=== PATIENT | male | born 1950 | race Caucasian/White ===

== ENCOUNTER 2020-05-08 10:24 | Inpatient (IN) | payer MEDICARE, OTHER, SELFPAY ==
[2020-05-08] VITALS (40 sets, daily range): BP systolic 115–165; BP diastolic 48–125; PULSE 71–91; RESP 16–31; TEMP 36.3–37.7; O2SAT 84–98; BMI 41.8
--- NOTE | ~2020-05-08 | XR_ITS ---
EXAMINATION: XR chest 2V DATE: 05/08/2020 12:21 INDICATION: Midsternal chest pain. Shortness of breath. TECHNIQUE: Frontal and lateral views of the chest were obtained. COMPARISON: Chest 2 views 08/16/2019 FINDINGS: There is mild atelectasis at left lung base. No pleural effusion or pneumothorax. The heart size is normal. There are epidural electrodes in thoracic spine. IMPRESSION: 1. Mild atelectasis at left lung base. Reviewed, dictated and finalized at location A.
--- NOTE | ~2020-05-08 | XR_ITS ---
EXAMINATION: XR cholangiogram surg 1st inj DATE: 05/12/2020 13:56 INDICATION: Cholelithiasis. TECHNIQUE: 187 fluoroscopic images of the right upper quadrant were obtained during intraoperative ch olangiography performed by the surgeon. I was not present in the operating room. Fluoroscopy exposure time was 30 seconds. COMPARISON: CT abdomen and pelvis 05/08/2020 FINDINGS: There is a catheter in the cystic duct. There is stricture of the distal 2/3 of the common duct, likely secondary to pancreatitis. Contrast passes to the duodenum. There is no choledocholithia sis. IMPRESSION: 1. No choledocholithiasis. 2. Stricture of the distal 2/3 of the common duct, likely secondary to pancreatitis. Reviewed, dictated and finalized at location A. IMPRESSION: 1. No choledocholithiasis. 2. Stricture of the distal 2/3 of the common duct, likely secondary to pancreat itis.
--- NOTE | ~2020-05-08 | CT_ITS ---
EXAMINATION: CT abdomen pelvis w con DATE: 05/08/2020 13:10 INDICATION: Epigastric abdominal pain. TECHNIQUE: Computed tomography (CT) of the abdomen and pelvis was performed with 100 mL Omnipaque 350 intravenous contrast. Automated exposure control and iterative reconstruction technique were employe d. The dose-length product was 1486.37 mGy-cm. COMPARISON: Ultrasound 05/08/2020 FINDINGS: The visualized portions of the lung bases demonstrate mild atelectasis. No pleural effusion . The heart size is normal. There are coronary artery calcifications. No pericardial effusion. There is diffuse hepatic steatosis. There are gallstones in the gallbladder, which is normal in size. The s pleen is normal. There is fat stranding around the head of the pancreas, consistent with acute inters titial pancreatitis. The adrenal glands and right kidney are normal. There is a 1.7 cm cyst in left k idney. There are no dilated loops of bowel. There is diverticulosis of the colon without evidence of diverticulitis. The appendix is normal. There are no pathologically enlarged lymph nodes. There is no free intraperitoneal fluid. There are old healed fractures of the pubic bones. There is ankylosis of the left sacroiliac joint with 2 screws. There is failed fusion of the right sacroiliac joint with f ixation with a broken screw. Epidural electrodes are noted in thoracic spine. There is mild thoracic spondylosis and moderate lumbar spondylosis. IMPRESSION: 1. Acute interstitial pancreatitis. 2. Cholelithiasis. 3. Diffuse hepatic steatosis. Reviewed, dictated and finalized at location A.
--- NOTE | ~2020-05-08 | US_ITS ---
EXAMINATION: US right upper quadrant DATE: 05/08/2020 12:18 INDICATION: Right upper quadrant abdominal pain. TECHNIQUE: Multiple grayscale and Doppler ultrasound images of the abdomen were obtained. COMPARISON: Ultrasound 08/16/2019 FINDINGS: The visualized portion of the head of the pancreas is normal. There is diffuse hepatic stea tosis. No liver surface nodularity. There is normal flow in main portal vein. The gallbladder is norm al in size. No gallstones or gallbladder wall thickening. There are polyps in the gallbladder measuri ng up to 4 mm, likely benign and needing no follow-up. There was no sonographic Scales sign. The comm on duct is normal and measures 3 mm. IMPRESSION: 1. Diffuse hepatic steatosis. Reviewed, dictated and finalized at location A.
--- NOTE | 2020-05-08 10:50 | PC.NURSE ---
Pt difficult IV stick causing delay in lab draw. Attempt x2 without success.
[2020-05-08 11:17] LABS: Basophils Percent Auto 0.2 % (0.2-1.2); Eosinophils Percent Auto 0.1 % (0-4.4); Hematocrit 37.3 % (42.0-52.0); Immature Granulocyte Absolute 0.09 K/mm3 (0.00-0.031); Immature Granulocyte Percent A 0.6 % (0-0.5); Lymphocytes Absolute Auto 1.19 K/mm3 (0.9-3.2); Lymphocytes Percent Auto 8.3 % (18.3-44.2); Mean Corpuscular HGB Conc 32.2 g/dl (32-36); Mean Corpuscular Hemoglobin 26.1 pg (26-34); Mean Corpuscular Volume 81.3 fl (80-100); Monocytes Absolute Auto 1.1 K/mm3 (0.1-0.6); Monocytes Percent Auto 7.8 % (2.6-8.5); Neutrophils Absolute Auto 11.9 K/mm3 (1.3-6.7); Platelet Count Result 179 k/mm3 (150-375); Red Blood Count 4.59 M/mm3 (4.6-6.20); Red Cell Distribution Width 15.9 % (11.5-14.5); White Blood Count 14.3 K/mm3 (4.5-10.0)
[2020-05-08 11:27] LABS: INR 1.1; Prothrombin Time 13.7 Seconds (11.1-14.7)
[2020-05-08] MEDS: SODIUM CHLORIDE 0.9% IV 1,000 ML 999 ML IV CONT (11:27)
[2020-05-08] MEDS: MORPHINE SULFATE (*CRX) 4 MG/ML INJ IV PUSH ×3 (11:27→15:39)
[2020-05-08 11:28] LABS: Partial Thromboplastin Time 30.2 SECONDS (22.3-36.8)
[2020-05-08 11:31] LABS: Alanine Aminotransferase 24 U/L (4-50); Albumin Level 4.3 g/dL (3.5-5.1); Alkaline Phosphatase 112 U/L (38-126); Anion Gap 7 mmol/L (8-16); Aspartate Amino Transferase 26 U/L (17-59); Bilirubin,Total 2.1 mg/dL (0.2-1.3); Blood Urea Nitrogen 15 mg/dL (9-20); Carbon Dioxide 29 mmol/L (22-30); Chloride 96 mmol/L (98-107); Estimated CRCL calculation 88 ml/min; Estimated Glomerular Filt Rate > 60; Glucose 127 mg/dL (75-110); Lipase 450 U/L (23-300); Sodium 132 mmol/L (137-145)
[2020-05-08 11:42] LABS: Troponin I < 0.012 ng/mL (0.000-0.034)
--- NOTE | 2020-05-08 11:54 | ECG_ITS ---
Measurements Intervals [place] Rate: 92 P: 71 NV: 140 QRS: -29 QRSD: 97 T: 13 QT: 405 QTc: 501 Interpretive Statements SINUS RHYTHM SUPRAVENTRICULAR BIGEMINY ABNORMAL ECG Electronically Signed On 05-08-2020 12:34:26 CDT by Murtaza Menchaca D.O.
--- NOTE | 2020-05-08 11:55 | PC.NURSE ---
Pt with ultrasound.
--- NOTE | 2020-05-08 12:49 | PC.NURSE ---
Pt resting on stretcher. Call light within reach.
[2020-05-08 12:57] LABS: Add Urine Microscopic? YES; Appearance Urine Cloudy (Clear); Bacteria Urine 2+ /hpf; Bilirubin Urine Negative (Negative); Blood Urine Negative (Negative); Color Urine Yellow (Yellow); Glucose Urine UA Negative (Negative); Ketones Urine Negative (Negative); Leukocyte Esterase Ur Trace LEU/UL (Negative); Mucus Urine Few /lpf; Nitrate Urine Negative (Negative); Protein Urine 1+ mg/dL (Negative); RBC Urine 0-2 /hpf (0-2); Specific Grav Ur 1.021 (1.001-1.035); WBC Urine 16-20 /hpf
--- NOTE | 2020-05-08 12:58 | PC.NURSE ---
Pt requesting pain medication. ERP made aware.
--- NOTE | 2020-05-08 13:38 | PC.NURSE ---
pt resting on stretcher. call light within reach.
--- NOTE | 2020-05-08 14:14 | ED.GENADULT ---
HPI - General Adult General Chief complaint: Chest Pain Stated complaint: Abd/cp Time Seen by Provider: 05/08/20 10:30 History of Present Illness HPI narrative: Patient is a 70-year-old male who presents ER with abdominal pain. Ongoing for 2 days radiates into his chest. Worse with movement and eating. Has some nausea but no vomiting. No history of gallstones. Has not had these symptoms before. No exertional component. No alleviating factors. Related Data Allergies Allergy/AdvReac Type Severity Reaction Status Date / Time No Known Allergies Allergy Verified 05/08/20 13:37 Review of Systems Review of Systems: All systems reviewed & are unremarkable except as noted in HPI and below Constitutional: Constitutional: Denies chills, Denies fever(s) and Denies weakness ENT: Denies nasal congestion and Denies sore throat Respiratory: Respiratory: Denies cough, Denies dyspnea and Denies wheezing Gastrointestinal: Gastrointestinal: Reports abdominal pain, Denies bloating, Denies diarrhea, Reports nausea and Denies vomiting PMFSH Past Medical History Medical History (Updated 05/08/20 @ 18:47 by Hieu Alberto MD) Anxiety Arthritis Back pain Depression Diabetes GERD (gastroesophageal reflux disease) History of drug abuse HLD (hyperlipidemia) Hypertension Migraines Pelvis fracture the patient stated that he has [address] from surgery Sleep apnea Spinal cord stimulator status Surgical History Surgical History (Updated 05/08/20 @ 16:47 by Leanne Mackey NP) History of back surgery 2-3 times History of open reduction and internal fixation (ORIF) procedure lt thumb History of tonsillectomy Social History Social History (Updated 08/16/19 @ 13:25 by Elio Mckenna) Smoking packs per day: 0.5 Smoking cigarettes per day: 10.0 Years smoked: 30 Smoking pack-years: 15.00 Smoking status: Former smoker Tobacco type: cigarettes Alcohol intake: never Substance use type: opiates and prescription drug Last use: 05/07/2020 Gender identity (if verbalized by the patient): Male Sexual Orientation (if Verbalized by the Patient): Straight or Heterosexual Spiritual care concerns: No Exam Narrative: Exam Narrative: GENERAL: Well-appearing, well-nourished, and in no acute distress. HEAD: Normocephalic, atraumatic. ENT: Mucous membranes moist. CHEST: Clear to auscultation. No respiratory distress. HEART: Regular rate and rhythm. Normal peripheral pulses. ABDOMEN: Soft, mild tenderness palpation to epigastrium right upper quadrant, nondistended. EXTREMITIES: Normal range of motion. No edema. SKIN: Warm, dry, no rash. NEURO: Alert and oriented x3. Course Course Emergency Course: Patient informed results. Does not drink alcohol. Unsure why he would have pancreatitis. He could be passing a small stone and would be in need of MRCP. Admit to hospitalist service. Vital Signs Vital signs: Vital Signs Temperature 99.8 F H 05/08/20 10:28 Pulse Rate 89 05/08/20 10:28 Respiratory Rate 19 05/08/20 10:28 Blood Pressure 157/67 H 05/08/20 10:28 Pulse Oximetry 91 05/08/20 10:28 Temperature 97.8 F 05/08/20 17:43 Pulse Rate 82 05/08/20 17:43 Respiratory Rate 20 05/08/20 17:43 Blood Pressure 157/77 H 05/08/20 17:43 Pulse Oximetry 97 05/08/20 17:43 Medical Decision Making Vital Signs Vital Signs: Vital Signs Temperature 99.8 F H 05/08/20 10:28 Pulse Rate 89 05/08/20 10:28 Respiratory Rate 19 05/08/20 10:28 Blood Pressure 157/67 H 05/08/20 10:28 Pulse Oximetry 91 05/08/20 10:28 Temperature 97.8 F 05/08/20 17:43 Pulse Rate 82 05/08/20 17:43 Respiratory Rate 20 05/08/20 17:43 Blood Pressure 157/77 H 05/08/20 17:43 Pulse Oximetry 97 05/08/20 17:43 Lab Data Result diagrams: 05/08/20 11:09 05/08/20 11:09 Labs: Lab Results 05/08/20 05/08/20 05/08/20 Range/Units 10:45 11:09 11:09 WB
--- NOTE | 2020-05-08 16:09 | PC.NURSE ---
spoke with ag cooley regarding de la cruz cath order. states is ok to wait on placement since pt stood at bedside earlier and voided in urinal without difficulty.
--- NOTE | 2020-05-08 16:36 | PM.IMHP ---
H&P: HPI History of Present Illness Date/Time: 05/08/20 16:36 Chief complaint: pancreatitis Narrative: Marcial Saldana is a 70 year old male Who has a history of severe gastroesophageal reflux disease. The patient had been here back and August with abdominal pain that he stated was this severe. At that time they told him that was just gastroesophageal reflux disease. The patient stated for the last 2 days he has just not been able to tolerate the discomfort. The patient does have chronic back pain and has a stimulator to his back. He stated that has not been helping him. He has [place] that he takes at home as well as MS Contin. The patient stated that his routine pain medication is not helping him. He is complaining of epigastric discomfort that radiates to his chest. It is worse with movement and eating. He said he had a little bit of nausea but no vomiting. He had an abdominal pelvis CT which was read as acute interstitial pancreatitis. Cholelithiasis. Diffuse hepatic steatosis. The patient stated that he has not had any prior history of any gallstones. The patient stated that he quit drinking alcohol approximately 30 years ago. He also stated that he had a drug addiction 30 years ago and no longer uses cocaine. He was to pain management for his back and received pain medication through them. Patient has been getting morphine in the emergency room and he states that this is not enough for him. He said it was not controlling his discomfort. He is having difficulty laying on the bed. He also states that he was having difficulty urinating and that was having problems getting his urine out. He has had no previous history of any BPH. He is requesting a Myles catheter because he feels that he is not emptying and has been urinating frequently. The patient has 16-20 wbc's and 2+ bacteria in his urine. Trace of leukocyte esterase. I urine culture has been sent. Patient was started on IV fluids and given IV morphine. MRCP has been ordered for the patient. patient's lipase was only noted to be 450. Date of service 05/08/2020. Review of Systems Review of Systems: All systems reviewed & are unremarkable except as noted in HPI and below Constitutional: Constitutional: Reports as per HPI and Reports no additional constitutional complaints Eyes: Eyes: Reports as per HPI and Reports no additional eye complaints ENT: Reports system reviewed and no additional complaints, except as documented and Reports Normal hearing present Cardiovascular: Cardiovascular: Reports no additional cardiovascular complaints Respiratory: Respiratory: Reports no additional respiratory complaints and Reports no additional respiratory complaints Gastrointestinal: Gastrointestinal: Reports as per HPI and Reports no additional gastrointestinal complaints Musculoskeletal: Musculoskeletal: Reports no additional musculoskeletal complaints Integumentary/Breasts: Skin/Breast: Reports system reviewed and no additional complaints, except as docu and Reports as per HPI Neurologic: Reports system reviewed and no additional complaints, except as documented, Reports as per HPI and Reports Normal hearing present Psychiatric: Psychiatric: Reports no additional psychiatric complaints and Reports as per HPI Endocrine: Endocrine: Reports no additional endocrine complaints Hematologic/Lymphatic: Hematologic/Lymphatic: Reports no additional hematologic/lymphatic complaints Allergic/Immunologic: Allergic/Immunologic: Reports no additional allergic/immunologic complaints [facility] Past Medical History Medical History (Updated 05/08/20 @ 16:53 by Leanne Mackey NP) Anxiety Arthritis Back pain Depression Diabetes GERD (gastroesophageal reflux disease) History of drug abuse HLD (hyperlipidemia) Hypertension Migraines Pelvis fracture the patient stated that he has [address] from surgery Sleep apnea Spinal cord stimulator status Surgical History Surgical History
--- NOTE | 2020-05-08 17:06 | ADMGEN ---
This patient, Marcial Saldana, was admitted to 2 Medical Room 242-. Patient/family oriented to hospital policies and general routines including ID bracelet, bed and alarms, visiting hours, pain management, procedures, bathroom and other care routines, personal items, smoking policy, room service/diet, and visiting hours. Valuables list has been completed. Information on how to activate the Rapid Response Team has been discussed. Patient/Family are encouraged to report perceived risks to care and to ask questions if they do not understand what they are told or what they should do.
[2020-05-08 17:20] LABS: Glucose Point of Care 105 (65-105)
[2020-05-08] MEDS: LACTATED RINGERS 1,000 ML 125 ML IV CONT (17:34)
[2020-05-08] MEDS: HYDROmorphone HCL INJ (*CRX) 1 MG/ML SYR IV PUSH ×3 (17:37→23:49)
[2020-05-08 19:07] LABS: Hemoglobin A1C 5.9 % (<5.7)
[2020-05-08] MEDS: PANTOPRAZOLE SODIUM IV 40 MG VIAL IV PUSH (20:43)
[2020-05-08 23:47] LABS: Glucose Point of Care 107 (65-105)
[2020-05-09] VITALS: BP 115/42; PULSE 73; RESP 20; TEMP 36.1; O2SAT 92
[2020-05-09] MEDS: ONDANSETRON INJ 4 MG/2 ML VIAL IV PUSH (02:01)
[2020-05-09] MEDS: LACTATED RINGERS 1,000 ML 125 ML IV CONT ×2 (02:01→13:43)
[2020-05-09] MEDS: HYDROmorphone HCL INJ (*CRX) 1 MG/ML SYR IV PUSH ×7 (03:55→23:34)
[2020-05-09 04:00] VITALS: BP 119/46; PULSE 80; RESP 20; TEMP 36.1; O2SAT 95
[2020-05-09] MEDS: LORazepam INJ (*CRX) 2 MG/ML VIAL 0.5 MG IV PUSH ×3 (05:04→18:01)
[2020-05-09 05:18] LABS: Basophils Percent Auto 0.2 % (0.2-1.2); Eosinophils Percent Auto 0.2 % (0-4.4); Hematocrit 34.5 % (42.0-52.0); Immature Granulocyte Absolute 0.17 K/mm3 (0.00-0.031); Immature Granulocyte Percent A 1.3 % (0-0.5); Lymphocytes Absolute Auto 1.01 K/mm3 (0.9-3.2); Lymphocytes Percent Auto 7.7 % (18.3-44.2); Mean Corpuscular HGB Conc 31.9 g/dl (32-36); Mean Corpuscular Hemoglobin 25.7 pg (26-34); Mean Corpuscular Volume 80.6 fl (80-100); Mean Platelet Volume 12.2 fl (7.4-10.4); Monocytes Absolute Auto 1.1 K/mm3 (0.1-0.6); Monocytes Percent Auto 8.4 % (2.6-8.5); Neutrophils Absolute Auto 10.9 K/mm3 (1.3-6.7); Neutrophils Percent Auto 82.2 % (45.5-73.1); Platelet Count Result 159 k/mm3 (150-375); Red Blood Count 4.28 M/mm3 (4.6-6.20); Red Cell Distribution Width 15.9 % (11.5-14.5); White Blood Count 13.2 K/mm3 (4.5-10.0)
[2020-05-09 05:34] LABS: Alanine Aminotransferase 21 U/L (4-50); Albumin Level 3.9 g/dL (3.5-5.1); Alkaline Phosphatase 97 U/L (38-126); Anion Gap 7 mmol/L (8-16); Aspartate Amino Transferase 22 U/L (17-59); Blood Urea Nitrogen 14 mg/dL (9-20); Calcium 8.7 mg/dL (8.4-10.2); Carbon Dioxide 29 mmol/L (22-30); Chloride 98 mmol/L (98-107); Cholesterol 130 mg/dL (0-200); Estimated CRCL calculation 89 ml/min; Estimated Glomerular Filt Rate > 60; Glucose 117 mg/dL (75-110); HDL Direct 43 mg/dL; Lipase 217 U/L (23-300); Magnesium 1.8 mg/dL (1.6-2.3); Potassium 4.1 mmol/L (3.4-5.0); Sodium 134 mmol/L (137-145); Triglycerides 51 mg/dL (<150)
[2020-05-09 05:44] LABS: LDL Cholesterol Direct 62 mg/dL
[2020-05-09 05:54] LABS: Glucose Point of Care 102 (65-105)
--- NOTE | 2020-05-09 06:36 | PC.NURSE ---
DR SY NOTIFIED MRCP CANCELLED DUE TO STIMULATOR
[2020-05-09 07:03] LABS: Thyroid Stimulating Hormone Reflex 0.698 uIU/mL (0.465-4.68)
[2020-05-09 08:00] VITALS: BP 121/51; PULSE 81; RESP 18; TEMP 36.6; O2SAT 93
[2020-05-09] MEDS: PANTOPRAZOLE SODIUM IV 40 MG VIAL IV PUSH ×2 (09:45→19:49)
[2020-05-09 12:00] VITALS: BP 120/50; PULSE 90; RESP 18; TEMP 36.7; O2SAT 97
[2020-05-09 13:53] LABS: Glucose Point of Care 92 (65-105)
--- NOTE | 2020-05-09 14:23 | PM.IMPN ---
Progress Note: A&P Assessment and Plan (1) Pancreatitis: Code(s): K85.90 - Acute pancreatitis without necrosis or infection, unspecified Status: Acute Assessment and Plan: patient is NPO at this time. The patient has some gallstones. awaiting MRCP and surgery consultation. Pain control lipase and amylase to monitor (2) UTI (urinary tract infection): Code(s): N39.0 - Urinary tract infection, site not specified Status: Acute Assessment and Plan: Patient was started on Rocephin and urine cultures are pending. (3) Cholelithiasis: Code(s): K80.20 - Calculus of gallbladder without cholecystitis without obstruction Status: Acute Assessment and Plan: The CT of the abdomen shows that he does have cholelithiasis. (4) Hypertension: Code(s): I10 - Essential (primary) hypertension Status: Chronic Assessment and Plan: P.r.n. hydralazine. (5) Diabetes: Code(s): E11.9 - Type 2 diabetes mellitus without complications Status: Chronic Assessment and Plan: I am not sure what medications he is on at home the patient is not sure either but would do Accu-Cheks q.6 hours. (6) HLD (hyperlipidemia): Code(s): E78.5 - Hyperlipidemia, unspecified Status: Chronic Assessment and Plan: We will check a lipid profile in the a.m. (7) Sleep apnea: Code(s): G47.30 - Sleep apnea, unspecified Status: Chronic Assessment and Plan: titrate CPAP here. (8) Anxiety: Code(s): F41.9 - Anxiety disorder, unspecified Status: Chronic Assessment and Plan: P.r.n. Ativan. (9) Back pain: Code(s): M54.9 - Dorsalgia, unspecified Status: Chronic Assessment and Plan: Patient has a spinal stimulator. And sees pain management outside facility. (10) Depression: Code(s): F32.9 - Major depressive disorder, single episode, unspecified Status: Chronic Assessment and Plan: Patient is not sure which medications he is on at this time. Subjective Date/time seen: 05/09/20 14:23 Interval history: 70 year old male Who has a history of severe gastroesophageal reflux disease. The patient had been here back and August with abdominal pain that he stated was this severe. Admitted with pancreatitis and GB stones. Pt still having severe pain in RUQ area, awaiting MRCP and GI consultation. Review of Systems Review of Systems: All systems reviewed & are unremarkable except as noted in HPI and below Gastrointestinal: Gastrointestinal: Reports abdominal pain Comments: RUQ Exam Narrative: Exam Narrative: Pt still feels some abdominal pains Resp: Effort & Inspection: normal respiratory effort Auscultation: clear to auscultation bilaterally Percussion: percussion normal Cardio: Palpation: normal PMI Rate: regular rate Rhythm: regular rhythm Heart sounds: S1 normal heart sound present and S2 normal heart sound present Peripheral pulses: Peripheral pulses 2+ throughout GI: Inspection: normal to inspection, distended and obesity Auscultation: normal bowel sounds Neuro: General: oriented to person, oriented to place, oriented to time and patient oriented x3 Cranial nerves: Yes Equal, round and reactive pupils present and Yes Normal hearing present Cognition (Neuro): normal cognition Speech: normal speech Gait exam (Neuro): Normal gait present Motor exam (neuro): 5/5 motor strength present throughout Sensory Exam: normal sensation Extrem: General: normal to inspection Right upper extremity: normal to inspection and shoulder/upper arm Left upper extremity: normal to inspection and shoulder/upper arm Right lower extremity: normal to inspection Left lower extremity: normal to inspection Psych: Appearance: grossly normal Mental Status: mental status grossly normal Speech and movement: Normal speech and movement present Affect: normal affect Attitude: cooperative Thou
[2020-05-09 15:20] LABS: Amylase 67 U/L (30-110); Lipase 332 U/L (23-300)
[2020-05-09 16:00] VITALS: BP 118/40; PULSE 96; RESP 18; TEMP 36.8; O2SAT 94
--- NOTE | 2020-05-09 16:44 | PM.CNGS ---
Assessment and Plan Assessment and plan (1) Acute pancreatitis: Onset Date: ~05/08/20 Code(s): K85.90 - Acute pancreatitis without necrosis or infection, unspecified Status: Acute Assessment and Plan: patient is still having pain but lipase is coming down nicely in bilirubin is down to 2.0. Recommend repeating liver function tests tomorrow along with the lipase. Hopefully patient will have approval to go ahead with MRCP. He states that the generator in his nerve stimulator in his back is MRI compatible. Await MR P MRCP results. If no stones in the common duct consider laparoscopic cholecystectomy with possible intraoperative cholangiogram sometime in the next few days. (2) Cholelithiasis: Code(s): K80.20 - Calculus of gallbladder without cholecystitis without obstruction Status: Acute Assessment and Plan: I carefully reviewed the two previous ultrasounds and his recent CT scan with Dr. Corbett in radiology today. The CT suggests that there are stones in the gallbladder since these are dense and therefore most likely calcified. They also seem to separate from the wall of the gallbladder unlike the ultrasound a month ago which seemed to indicate that these possibly were polyps. If patient unable to have his MRCP may consider proceeding to laparoscopic cholecystectomy with intraoperative cholangiogram to clear the duct tomorrow, if his lipase comes down rather than goes up. For now we would consider keeping him NPO with IV fluids until we get tomorrow morning's labs back. (3) UTI (urinary tract infection): Code(s): N39.0 - Urinary tract infection, site not specified Status: Acute Assessment and Plan: Continue antibiotics (4) Hypertension: Onset Date: Unknown Code(s): I10 - Essential (primary) hypertension Status: Chronic Assessment and Plan: IV medication as needed (5) Diabetes: Onset Date: Unknown Code(s): E11.9 - Type 2 diabetes mellitus without complications Status: Chronic Assessment and Plan: monitor labs and fingersticks (6) Sleep apnea: Onset Date: Unknown Code(s): G47.30 - Sleep apnea, unspecified Status: Chronic Assessment and Plan: to use CPAP at night if needed (7) Anxiety: Onset Date: Unknown Code(s): F41.9 - Anxiety disorder, unspecified Status: Chronic Assessment and Plan: medicine has ordered some p.r.n. Ativan for this. History of Present Illness Consult details Consult date: 05/09/20 Reason for consult: abdominal pain Requesting physician: Kristal Ivan MD Narrative: Marcial Saldana is a 70 year old white male who has a history of severe gastroesophageal reflux disease. Was recently hospitalized here at [place] about a month ago. At that time his Prilosec was doubled such these taking it twice a day but he says his upper abdominal pain is never really improved a lot. The patient had also been here back in August with abdominal pain that he stated was this severe. At that time they told him that was just gastroesophageal reflux disease. The patient stated for the last 2-4 days he has just not been able to tolerate the discomfort. He tells me that it really started to care cup on Tuesday of this week. Does not remember eating any heavy spicy or fatty meals at the onset of the current pain. He states he typically tries to avoid fatty foods. The patient does have chronic back pain and has a stimulator in his back. States that this fairly recently at [facility] in [place] was replaced with an MRI compatible generator. He stated that it has not been helping him as much as he would like. He has [place] that he takes at home as well as MS Contin. The patient stated that his routine pain medication is not helping him. He is complaining of epigastric discomfort that radiates to his chest. It is worse with movement and eating.
[2020-05-09 19:06] LABS: Glucose Point of Care 99 (65-105)
[2020-05-09 21:18] VITALS: BP 135/71; PULSE 74; RESP 16; TEMP 37.3; O2SAT 97
[2020-05-09] MEDS: LACTATED RINGERS 1,000 ML 75 ML IV CONT (23:34)
[2020-05-09 23:54] LABS: Glucose Point of Care 108 (65-105)
[2020-05-10] VITALS (7 sets, daily range): BP systolic 110–140; BP diastolic 50–93; PULSE 61–79; RESP 16–20; TEMP 36.3–37.1; O2SAT 93–98
[2020-05-10] MEDS: HYDROmorphone HCL INJ (*CRX) 1 MG/ML SYR IV PUSH ×8 (01:42→18:46)
[2020-05-10 05:13] LABS: Basophils Percent Auto 0.4 % (0.2-1.2); Eosinophils Absolute Auto 0.1 K/mm3 (0-0.3); Eosinophils Percent Auto 1.1 % (0-4.4); Hematocrit 35.1 % (42.0-52.0); Hemoglobin 11.1 g/dL (14.0-18.0); Immature Granulocyte Absolute 0.09 K/mm3 (0.00-0.031); Immature Granulocyte Percent A 0.8 % (0-0.5); Lymphocytes Absolute Auto 1.01 K/mm3 (0.9-3.2); Lymphocytes Percent Auto 8.9 % (18.3-44.2); Mean Corpuscular HGB Conc 31.6 g/dl (32-36); Mean Corpuscular Hemoglobin 25.6 pg (26-34); Mean Corpuscular Volume 81.1 fl (80-100); Mean Platelet Volume 12.1 fl (7.4-10.4); Monocytes Absolute Auto 0.8 K/mm3 (0.1-0.6); Monocytes Percent Auto 7.3 % (2.6-8.5); Neutrophils Absolute Auto 9.2 K/mm3 (1.3-6.7); Neutrophils Percent Auto 81.5 % (45.5-73.1); Platelet Count Result 170 k/mm3 (150-375); Red Blood Count 4.33 M/mm3 (4.6-6.20); Red Cell Distribution Width 15.6 % (11.5-14.5); White Blood Count 11.3 K/mm3 (4.5-10.0)
[2020-05-10 05:24] LABS: Alanine Aminotransferase 19 U/L (4-50); Albumin Level 3.8 g/dL (3.5-5.1); Alkaline Phosphatase 101 U/L (38-126); Anion Gap 10 mmol/L (8-16); Aspartate Amino Transferase 23 U/L (17-59); Bilirubin,Total 1.3 mg/dL (0.2-1.3); Blood Urea Nitrogen 16 mg/dL (9-20); Calcium 8.7 mg/dL (8.4-10.2); Carbon Dioxide 27 mmol/L (22-30); Chloride 99 mmol/L (98-107); Estimated CRCL calculation 99 ml/min; Estimated Glomerular Filt Rate > 60; Glucose 101 mg/dL (75-110); Potassium 3.9 mmol/L (3.4-5.0); Sodium 136 mmol/L (137-145)
[2020-05-10 06:04] LABS: Glucose Point of Care 97 (65-105)
--- NOTE | 2020-05-10 08:25 | PM.PNGS ---
Progress Note: A&P Assessment and Plan (1) Acute pancreatitis: Onset Date: ~05/08/20 Code(s): K85.90 - Acute pancreatitis without necrosis or infection, unspecified Status: Acute Assessment and Plan: Amylae and lipase not back yet today. Information regarding patient's buried subcutaneous spinal block generator was not available last night so MRCP was not done. The nurses have contacted [facility] and are trying to get information for our magnetic residence resonance unit. Hopefully MRCP today. If amylase and lipase normal and no signs of common bile duct stone could consider laparoscopic cholecystectomy in the next 1-2 days if patient agrees. I provided the patient with some patient information regarding gallbladder surgery and diet. (2) UTI (urinary tract infection): Code(s): N39.0 - Urinary tract infection, site not specified Status: Acute (3) Cholelithiasis: Onset Date: Unknown Code(s): K80.20 - Calculus of gallbladder without cholecystitis without obstruction Status: Acute Assessment and Plan: If amylase and lipase normal eyes and no signs of common bile duct stone could consider laparoscopic cholecystectomy in the next 1-2 days if patient agrees. I provided the patient with some patient information regarding gallbladder surgery and diet. (4) Hypertension: Onset Date: Unknown Code(s): I10 - Essential (primary) hypertension Status: Chronic (5) Sleep apnea: Onset Date: Unknown Code(s): G47.30 - Sleep apnea, unspecified Status: Chronic Assessment and Plan: I did see a CPAP machine in the patient's room this morning. (6) Anxiety: Onset Date: Unknown Code(s): F41.9 - Anxiety disorder, unspecified Status: Chronic Additional Plan Encouraging nurses to work out the questions about the patient's spinal pain generator so that MRCP can take place. Okay with me to allow patient clear liquids later today if MRCP done or can't be done. Will order MiraLax b.i.d. since patient has not had bowel movement since entering the hospital. Subjective Subjective Date/Time Seen: 05/10/20 08:25 Patient laying on his right side when I entered the room. States that his pain is about the same. He is able tolerated if he keeps getting his pain medicine. Points to mid epigastric area slightly above the umbilicus for the site of most pain. States he is passing flatus but no bowel movement since entering the hospital. Review of Systems Constitutional: Constitutional: Reports no additional constitutional complaints ENT: Reports other (Mucous Membranes moist.) Cardiovascular: Cardiovascular: Denies dyspnea Respiratory: Respiratory: Denies pain on inspiration and Denies dyspnea Musculoskeletal: Musculoskeletal: Reports other (No calf swelling or edema) Integumentary/Breasts: Skin/Breast: Reports system reviewed and no additional complaints, except as docu Exam Const: General: cooperative, no acute distress, alert and awake Orientation/consciousness: patient oriented x3 HENMT: Mouth: Yes moist mucous membranes Neck: Neck: normal visual inspection Chest: Chest palpation & inspection: normal inspection of the chest Resp: Effort & Inspection: normal respiratory effort Auscultation: clear to auscultation bilaterally Cardio: Jugular venous distension: no JVD Rate: regular rate Rhythm: regular rhythm GI: Inspection: distended, Pannus present and obesity GI Palp: Yes abdominal tenderness ( Mid epigastric area) Auscultation: normal bowel sounds Rectal Exam: deferred Neuro: General: patient oriented x3 and moves all extremities Speech: normal speech Extrem: General: normal exam except as noted Psych: Mental Status: mental status grossly normal Speech and movement: Normal speech and movement present Affect: normal affect Thought content: Yes Normal thought content present Objective Data Vital Signs
[2020-05-10] MEDS: PANTOPRAZOLE SODIUM IV 40 MG VIAL IV PUSH ×2 (08:51→20:46)
--- NOTE | 2020-05-10 10:51 | PM.IMPN ---
Progress Note: A&P Assessment and Plan (1) Pancreatitis: Code(s): K85.90 - Acute pancreatitis without necrosis or infection, unspecified Status: Acute Assessment and Plan: Patient is NPO at this time. The patient has some gallstones. awaiting MRCP. Seen by surgery yesterday. Continue pain control lipase and amylase to monitor. Delay with MRCP pt has neurostimulator in situ sending details. (2) UTI (urinary tract infection): Code(s): N39.0 - Urinary tract infection, site not specified Status: Acute Assessment and Plan: Patient was started on Rocephin and urine cultures shows Klebsiella sensitive to rocephin (3) Cholelithiasis: Onset Date: Unknown Code(s): K80.20 - Calculus of gallbladder without cholecystitis without obstruction Status: Acute Assessment and Plan: The CT of the abdomen shows that he does have cholelithiasis. Pt awaiting MRCP today. (4) Hypertension: Onset Date: Unknown Code(s): I10 - Essential (primary) hypertension Status: Chronic Assessment and Plan: P.r.n. hydralazine. (5) Diabetes: Onset Date: Unknown Code(s): E11.9 - Type 2 diabetes mellitus without complications Status: Chronic Assessment and Plan: Accu-Cheks q.6 hours. (6) HLD (hyperlipidemia): Code(s): E78.5 - Hyperlipidemia, unspecified Status: Chronic Assessment and Plan: We will check a lipid profile in the a.m. (7) Sleep apnea: Onset Date: Unknown Code(s): G47.30 - Sleep apnea, unspecified Status: Chronic Assessment and Plan: titrate CPAP here. (8) Anxiety: Onset Date: Unknown Code(s): F41.9 - Anxiety disorder, unspecified Status: Chronic Assessment and Plan: P.r.n. Ativan. (9) Back pain: Code(s): M54.9 - Dorsalgia, unspecified Status: Chronic Assessment and Plan: Patient has a spinal stimulator. And sees pain management outside facility. (10) Depression: Code(s): F32.9 - Major depressive disorder, single episode, unspecified Status: Chronic Assessment and Plan: Ensure of the medications awaiting details from Subjective Date/time seen: 05/10/20 10:51 Interval history: 70 year old male Who has a history of severe gastroesophageal reflux disease. The patient had been here back and August with abdominal pain that he stated was this severe. Admitted with pancreatitis and GB stones. Pt still having severe pain in RUQ area, awaiting MRCP, hopefully today. Pt seen by surgery yesterday. Pt has neurostimulator in situ sending details to us. Review of Systems Review of Systems: All systems reviewed & are unremarkable except as noted in HPI and below Gastrointestinal: Gastrointestinal: Reports abdominal pain Exam Narrative: Exam Narrative: Pt still feels some abdominal pains Const: Orientation/consciousness: oriented to person, oriented to place, oriented to time and patient oriented x3 Eyes: Pupils: Equal, round and reactive pupils present Resp: Effort & Inspection: normal respiratory effort Auscultation: clear to auscultation bilaterally Percussion: percussion normal Cardio: Palpation: normal PMI Rate: regular rate Rhythm: regular rhythm Heart sounds: S1 normal heart sound present and S2 normal heart sound present Peripheral pulses: Peripheral pulses 2+ throughout GI: Inspection: normal to inspection Auscultation: normal bowel sounds Other: RUQ tenderness Neuro: General: oriented to person, oriented to place, oriented to time and patient oriented x3 Cranial nerves: Yes Equal, round and reactive pupils present and Yes Normal hearing present Cognition (Neuro): normal cognition Speech: normal speech Gait exam (Neuro): Normal gait present Motor exam (neuro): 5/5 motor strength present throughout Sensory Exam: normal sensation Extrem: General: normal to inspection Right
[2020-05-10 12:03] LABS: Glucose Point of Care 86 (65-105)
[2020-05-10] MEDS: LACTATED RINGERS 1,000 ML 75 ML IV CONT (14:08)
[2020-05-10 15:00] LABS: Amylase 68 U/L (30-110); Lipase 353 U/L (23-300)
[2020-05-10] MEDS: GLUCOSE ORAL GEL 15 GM OF GLUCSE IN 37.5 GM TUBE PO (16:14)
--- NOTE | 2020-05-10 16:18 | ECG_ITS ---
Measurements Intervals [place] Rate: 85 P: 37 IA: 136 QRS: -23 QRSD: 127 T: 14 QT: 389 QTc: 463 Interpretive Statements SINUS RHYTHM SUPRAVENTRICULAR BIGEMINY RSR' IN V1 OR V2, CONSIDER RIGHT VENTRICULAR HYPERTROPHY OR RIGHT VCD BORDERLINE ST ABNORMALITY- ANTEROLATERAL LEADS BASELINE WANDER- V1-V6 BASELINE ARTIFACT- II, III, AVF, V1-V6 ABNORMAL ECG Electronically Signed On 05-10-2020 17:08:20 CDT by Murtaza Menchaca D.O.
[2020-05-10 16:43] LABS: Glucose Point of Care 97 (65-105)
[2020-05-10 16:43] LABS: Glucose Point of Care 69 (65-105)
[2020-05-10 17:17] LABS: Troponin I < 0.012 ng/mL (0.000-0.034)
[2020-05-10] MEDS: LORazepam INJ (*CRX) 2 MG/ML VIAL 0.5 MG IV PUSH (18:47)
[2020-05-10] MEDS: HYDROcodone/acetaminophen (*CRX) 5-325 MG TABLET 1 TAB PO (20:45)
[2020-05-10 21:55] LABS: Glucose Point of Care 87 (65-105)
[2020-05-10] MEDS: PREGABALIN (*CRX) 75 MG CAPSULE 225 MG PO (23:36)
[2020-05-11] MEDS: LORazepam INJ (*CRX) 2 MG/ML VIAL 0.5 MG IV PUSH ×2 (00:57→23:00)
[2020-05-11 02:05] VITALS: BP 127/73; PULSE 72; RESP 16; TEMP 36.4; O2SAT 97
[2020-05-11] MEDS: LACTATED RINGERS 1,000 ML 75 ML IV CONT ×2 (04:49→21:05)
[2020-05-11 06:02] LABS: Hematocrit 34.4 % (42.0-52.0); Hemoglobin 11.2 g/dL (14.0-18.0); Mean Corpuscular HGB Conc 32.6 g/dl (32-36); Mean Corpuscular Hemoglobin 25.8 pg (26-34); Mean Corpuscular Volume 79.3 fl (80-100); Mean Platelet Volume 11.9 fl (7.4-10.4); Platelet Count Result 206 k/mm3 (150-375); Red Blood Count 4.34 M/mm3 (4.6-6.20); Red Cell Distribution Width 15.3 % (11.5-14.5); White Blood Count 9.3 K/mm3 (4.5-10.0)
[2020-05-11 06:11] LABS: Alanine Aminotransferase 27 U/L (4-50); Albumin Level 3.8 g/dL (3.5-5.1); Alkaline Phosphatase 137 U/L (38-126); Anion Gap 8 mmol/L (8-16); Aspartate Amino Transferase 31 U/L (17-59); Bilirubin,Total 1.4 mg/dL (0.2-1.3); Blood Urea Nitrogen 15 mg/dL (9-20); Calcium 9.1 mg/dL (8.4-10.2); Carbon Dioxide 26 mmol/L (22-30); Chloride 99 mmol/L (98-107); Estimated CRCL calculation 99 ml/min; Estimated Glomerular Filt Rate > 60; Glucose 115 mg/dL (75-110); Lipase 315 U/L (23-300); Magnesium 2.2 mg/dL (1.6-2.3); Potassium 3.8 mmol/L (3.4-5.0); Sodium 133 mmol/L (137-145)
[2020-05-11 06:44] VITALS: BP 134/71; PULSE 72; RESP 16; TEMP 36.4; O2SAT 96
[2020-05-11 08:05] LABS: Glucose Point of Care 111 (65-105)
[2020-05-11] MEDS: PANTOPRAZOLE SODIUM IV 40 MG VIAL IV PUSH ×3 (10:00→20:57)
[2020-05-11] MEDS: PREGABALIN (*CRX) 75 MG CAPSULE 225 MG PO ×2 (10:01→20:58)
[2020-05-11 10:10] VITALS: BP 141/52; PULSE 83; RESP 18; TEMP 36.6; O2SAT 98
[2020-05-11 12:01] LABS: Glucose Point of Care 99 (65-105)
--- NOTE | 2020-05-11 12:57 | WPDANESEPP ---
Anes - Eval Pre Procedure Procedure: Laparoscopic Cholecystectomy with IOC's Date/Time: 05/11/20 12:57 Surgeon: Brendan Pre Op Diagnosis: pancreatitis Patient Data Age: 70 Gender: M Height: 1.73 m Weight: 125 kg Last Vital Signs Temp 36.6 C 05/11/20 10:10 Pulse 83 05/11/20 10:10 Resp 18 05/11/20 10:10 BP 141/52 H 05/11/20 10:10 Pulse Ox 98 05/11/20 10:10 Allergies Allergy/AdvReac Type Severity Reaction Status Date / Time No Known Allergies Allergy Verified 05/08/20 13:37 Home Medications Medication Instructions Recorded Confirmed Type omeprazole magnesium [Prilosec OTC] 20 mg PO BID #30 tablet 08/16/19 05/08/20 Rx aripiprazole 2.5 mg PO DAILY 05/08/20 05/08/20 History aspirin [Adult Low Dose Aspirin] 81 mg PO DAILY 05/08/20 05/08/20 History atorvastatin 40 mg PO HS 05/08/20 05/08/20 History budesonide-formoterol [Symbicort] 2 puff INHALATION Q12H 05/08/20 05/08/20 History bupropion HCl 300 mg PO QAM 05/08/20 05/08/20 History cholecalciferol (vitamin D3) 50 mcg PO DAILY 05/08/20 05/08/20 History [Vitamin D3] hydrocodone-acetaminophen 1 tablet PO Q6H PRN 05/08/20 05/08/20 History ipratropium-albuterol 3 ml INHALATION QID PRN 05/08/20 05/08/20 History lisinopril 10 mg PO DAILY 05/08/20 05/08/20 History metformin 500 mg PO BID 05/08/20 05/08/20 History morphine 15 mg PO Q12H 05/08/20 05/08/20 History pregabalin [Lyrica] 225 mg PO BID 05/08/20 05/08/20 History tiotropium bromide [Spiriva 2 puff INHALATION DAILY 05/08/20 05/08/20 History Respimat] Laboratory Tests 05/10/20 05/10/20 05/10/20 14:36 14:36 16:09 WBC RBC Hgb Hct MCV MCH MCHC RDW Plt Count MPV Sodium Potassium Chloride Carbon Dioxide Anion Gap BUN Creatinine Estim Creat Clear Calc Estimated GFR Glucose POC Capillary Glucose 69 mg/dl mg/dl (65-105) Calcium Magnesium Total Bilirubin AST ALT Alkaline Phosphatase Troponin I Total Protein Albumin Amylase 68 U/L U/L (30-110) Lipase 353 U/L H U/L (23-300) 05/10/20 05/10/20 05/10/20 16:33 16:47 20:53 WBC RBC Hgb Hct MCV MCH MCHC RDW Plt Count MPV Sodium Potassium Chloride Carbon Dioxide Anion Gap BUN Creatinine Estim Creat Clear Calc Estimated GFR Glucose POC Capillary Glucose 97 mg/dl mg/dl 87 mg/dl mg/dl (65-105) (65-105) Calcium Magnesium Total Bilirubin AST ALT Alkaline Phosphatase Troponin I < 0.012 ng/mL ng/mL (0.000-0.034) Total Protein Albumin Amylase Lipase 05/11/20 05/11/20 05/11/20 05:16 05:16 07:55 WBC 9.3 K/mm3 K/mm3 (4.5-10.0) RBC 4.34 M/mm3 L M/mm3 (4.6-6.20) Hgb 11.2 g/dL L g/dL (14.0-18.0) Hct 34.4 % L % (42.0-52.0) MCV 79.3 fl L fl (80-100) MCH 25.8 pg L pg (26-34) MCHC 32.6 g/dl g/dl (32-36) RDW 15.3 % H % (11.5-14.5) Plt Count 206 k/mm3 k/mm3 (150-375) MPV 11.9 fl H fl (7.4-10.4) Sodium 133 mmol/L L mmol/L (137-145) Potassium 3.8 mmol/L mmol/L (3.4-5.0) Chloride 99 mmol/L mmol/L (98-107) Carbon Dioxide 26 mmol/L mmol/L (22-30) Anion Gap 8 mmol/L mmol/L (8-16) BUN 15 mg/dL mg/dL (9
[2020-05-11] MEDS: HYDROcodone/acetaminophen (*CRX) 5-325 MG TABLET 1 TAB PO ×2 (13:35→20:57)
--- NOTE | 2020-05-11 13:47 | PM.IMPN ---
Progress Note: A&P Assessment and Plan (1) Pancreatitis: Code(s): K85.90 - Acute pancreatitis without necrosis or infection, unspecified Status: Acute Assessment and Plan: Patient is NPO at this time. The patient has some gallstones. Pt for lap brenda soco AM under Surgery team. informed. (2) UTI (urinary tract infection): Code(s): N39.0 - Urinary tract infection, site not specified Status: Acute Assessment and Plan: Patient was started on Rocephin and urine cultures shows Klebsiella sensitive to rocephin (3) Cholelithiasis: Onset Date: Unknown Code(s): K80.20 - Calculus of gallbladder without cholecystitis without obstruction Status: Acute Assessment and Plan: The CT of the abdomen shows that he does have cholelithiasis. (4) Hypertension: Onset Date: Unknown Code(s): I10 - Essential (primary) hypertension Status: Chronic Assessment and Plan: P.r.n. hydralazine. (5) Diabetes: Onset Date: Unknown Code(s): E11.9 - Type 2 diabetes mellitus without complications Status: Chronic Assessment and Plan: Accu-Cheks q.6 hours. (6) HLD (hyperlipidemia): Code(s): E78.5 - Hyperlipidemia, unspecified Status: Chronic Assessment and Plan: We will check a lipid profile in the a.m. (7) Sleep apnea: Onset Date: Unknown Code(s): G47.30 - Sleep apnea, unspecified Status: Chronic Assessment and Plan: titrate CPAP here. (8) Anxiety: Onset Date: Unknown Code(s): F41.9 - Anxiety disorder, unspecified Status: Chronic Assessment and Plan: P.r.n. Ativan. (9) Back pain: Code(s): M54.9 - Dorsalgia, unspecified Status: Chronic Assessment and Plan: Patient has a spinal stimulator. And sees pain management outside facility. Stimulator is off checked by [facility] [employer] on Tuesday. Will need new battery inserted. (10) Depression: Code(s): F32.9 - Major depressive disorder, single episode, unspecified Status: Chronic Assessment and Plan: Medication list updated. Subjective Date/time seen: 05/11/20 13:47 Interval history: 70 year old male who has a history of severe gastroesophageal reflux disease. The patient had been here back in August with abdominal pain that he stated was this severe. Admitted with pancreatitis and GB stones this admission. Pt still having severe pain in RUQ area. Pt seen by surgery. Pt has neurostimulator in situ so was unable to have his MRCP. Pt is going for lap brenda, tomorrow. Review of Systems Review of Systems: All systems reviewed & are unremarkable except as noted in HPI and below Gastrointestinal: Comments: Abdominal pains RUQ Exam Narrative: Exam Narrative: Pt still feels some abdominal pains Const: Orientation/consciousness: oriented to person, oriented to place, oriented to time and patient oriented x3 Eyes: Pupils: Equal, round and reactive pupils present Resp: Effort & Inspection: normal respiratory effort Auscultation: clear to auscultation bilaterally Percussion: percussion normal Cardio: Palpation: normal PMI Rate: regular rate Rhythm: regular rhythm Heart sounds: S1 normal heart sound present and S2 normal heart sound present Peripheral pulses: Peripheral pulses 2+ throughout GI: Inspection: normal to inspection Auscultation: normal bowel sounds Other: RUQ tenderness Neuro: General: oriented to person, oriented to place, oriented to time and patient oriented x3 Cranial nerves: Yes Equal, round and reactive pupils present and Yes Normal hearing present Cognition (Neuro): normal cognition Speech: normal speech Gait exam (Neuro): Normal gait present Motor exam (neuro): 5/5 motor strength present throughout Sensory Exam: normal sensation Extrem: General: normal to inspection Right upper extremity: normal to inspection and shoulder/upper arm Left upper ext
--- NOTE | 2020-05-11 13:58 | PM.PNGS ---
Progress Note: A&P Assessment and Plan (1) Acute pancreatitis: Onset Date: ~05/08/20 Code(s): K85.90 - Acute pancreatitis without necrosis or infection, unspecified Status: Acute Assessment and Plan: lipase down to 315 today so close to upper limits of normal. Information From our MR department regarding patient's buried subcutaneous spinal block generator was that they do not do any MRs on patients that have these. Only [facility] does these so patient will not be able to have the MRCP here. Because of this I had a thorough discussion with the patient today and we would like to proceed with the other option which would be a c laparoscopic cholecystectomy in the next 1-2 days and if a cholangiogram shows a stone the patient could proceed to ERCP. If no stone he would be able to go home probably the following day. The risks, benefits, possible complications of this including bleeding, infection, possible injury to surrounding organs possible need for open cholecystectomy have been described to the patient he seems understand wished to proceed. I provided the patient with some patient information regarding gallbladder surgery and diet. Surgery is tentatively been scheduled for Tuesday05/12/2020 (2) UTI (urinary tract infection): Code(s): N39.0 - Urinary tract infection, site not specified Status: Acute (3) Cholelithiasis: Onset Date: Unknown Code(s): K80.20 - Calculus of gallbladder without cholecystitis without obstruction Status: Acute Assessment and Plan: If lipase normalizes and no signs of common bile duct stone, could consider laparoscopic cholecystectomy in the next 1-2 days if patient agrees. I provided the patient with some patient information regarding gallbladder surgery and diet. (4) Hypertension: Onset Date: Unknown Code(s): I10 - Essential (primary) hypertension Status: Chronic (5) Sleep apnea: Onset Date: Unknown Code(s): G47.30 - Sleep apnea, unspecified Status: Chronic Assessment and Plan: I did see a CPAP machine in the patient's room this morning. (6) Anxiety: Onset Date: Unknown Code(s): F41.9 - Anxiety disorder, unspecified Status: Chronic Additional Plan I will order two grams of Ancef even though he is on ceftriaxone for his urinary tract infection. He gets that in the evening so it would be better to have a good dose of antibiotics in his system when we do the surgery. Patient wishes to proceed tomorrow. Will order MiraLax b.i.d. since patient has not had bowel movement since entering the hospital. Subjective Subjective Date/Time Seen: 05/11/20 13:58 Patient lying bed when I entered the room. Still having some mid abdominal pain. Did have a bowel movement yesterday. States he is passing some flatus. He knows we are not able to proceed to the MRCP. This is because of the metal in his spinal generator for pain control. He is interested in proceeding to laparoscopic cholecystectomy with cholangiogram to see if there is a stone in the common duct or to clear the common duct. We will plan for this for tomorrow. Review of Systems Constitutional: Constitutional: Reports as per HPI, Reports no additional constitutional complaints and Denies headache(s) Eyes: Eyes: Denies loss of vision and Denies eye pain ENT: Reports Normal hearing present, Denies change in voice, Denies dizziness, Denies headache(s) and Reports other (Mucous Membranes moist.) Cardiovascular: Cardiovascular: Denies chest pain and Denies dyspnea Respiratory: Respiratory: Denies pain on inspiration, Denies dyspnea and Denies wheezing Gastrointestinal: Gastrointestinal: Reports abdominal pain ( Mid abdomen) Musculoskeletal: Musculoskeletal: Denies back pain, Denies arthralgias and Reports other (No calf swelling or edema) Integumentary/Breasts: Skin/Breast: Reports system reviewed and no additi
[2020-05-11 14:00] VITALS: BP 111/77; PULSE 80; RESP 18; TEMP 36.8; O2SAT 97
[2020-05-11 17:00] LABS: Glucose Point of Care 103 (65-105)
[2020-05-11] MEDS: ONDANSETRON INJ 4 MG/2 ML VIAL IV PUSH ×2 (17:40→22:56)
[2020-05-11 18:00] VITALS: BP 122/70; PULSE 96; RESP 16; TEMP 36.9; O2SAT 96
[2020-05-11 21:48] VITALS: BP 135/72; PULSE 81; RESP 18; TEMP 36.9; O2SAT 96
[2020-05-11 21:52] LABS: Glucose Point of Care 110 (65-105)
[2020-05-12] VITALS (14 sets, daily range): BP systolic 113–142; BP diastolic 59–89; PULSE 48–113; RESP 14–22; TEMP 35.9–36.7; O2SAT 93–100
[2020-05-12] MEDS: HYDROcodone/acetaminophen (*CRX) 5-325 MG TABLET 1 TAB PO ×2 (03:52→17:46)
[2020-05-12] MEDS: CHLORHEXIDINE GLUCONATE 4% SOL 120 ML BTL 1 APPLIC TOPICAL (05:33)
[2020-05-12 06:08] LABS: Basophils Percent Auto 0.6 % (0.2-1.2); Eosinophils Absolute Auto 0.2 K/mm3 (0-0.3); Eosinophils Percent Auto 2.3 % (0-4.4); Hematocrit 32.8 % (42.0-52.0); Hemoglobin 10.4 g/dL (14.0-18.0); Immature Granulocyte Absolute 0.06 K/mm3 (0.00-0.031); Immature Granulocyte Percent A 0.9 % (0-0.5); Lymphocytes Absolute Auto 1.11 K/mm3 (0.9-3.2); Lymphocytes Percent Auto 15.9 % (18.3-44.2); Mean Corpuscular HGB Conc 31.7 g/dl (32-36); Mean Corpuscular Hemoglobin 25.2 pg (26-34); Mean Corpuscular Volume 79.6 fl (80-100); Mean Platelet Volume 11.6 fl (7.4-10.4); Monocytes Absolute Auto 0.6 K/mm3 (0.1-0.6); Monocytes Percent Auto 8.6 % (2.6-8.5); Neutrophils Percent Auto 71.7 % (45.5-73.1); Platelet Count Result 210 k/mm3 (150-375); Red Blood Count 4.12 M/mm3 (4.6-6.20); Red Cell Distribution Width 15.5 % (11.5-14.5)
[2020-05-12 06:25] LABS: Alanine Aminotransferase 52 U/L (4-50); Albumin Level 3.4 g/dL (3.5-5.1); Alkaline Phosphatase 132 U/L (38-126); Anion Gap 7 mmol/L (8-16); Aspartate Amino Transferase 41 U/L (17-59); Blood Urea Nitrogen 13 mg/dL (9-20); Calcium 8.6 mg/dL (8.4-10.2); Carbon Dioxide 28 mmol/L (22-30); Chloride 102 mmol/L (98-107); Estimated CRCL calculation 99 ml/min; Estimated Glomerular Filt Rate > 60; Glucose 119 mg/dL (75-110); Lipase 213 U/L (23-300); Potassium 3.7 mmol/L (3.4-5.0); Sodium 137 mmol/L (137-145)
[2020-05-12 07:49] LABS: Glucose Point of Care 102 (65-105)
[2020-05-12] MEDS: PREGABALIN (*CRX) 75 MG CAPSULE 225 MG PO ×2 (10:10→20:49)
--- NOTE | 2020-05-12 10:38 | PM.IMPN ---
Progress Note: A&P Assessment and Plan (1) Pancreatitis: Qualifiers: Chronicity: acute Pancreatitis type: unspecified pancreatitis type Acute pancreatitis complication: unspecified Qualified Code(s): K85.90 - Acute pancreatitis without necrosis or infection, unspecified Code(s): K85.90 - Acute pancreatitis without necrosis or infection, unspecified Status: Acute Assessment and Plan: Patient presents with ongoing issues of intermittent abdominal discomfort; evidence of acute pancreatitis on imaging. Lipase up to 450 on arrival, now resolved to 213 today. Bili was elevated but normal today. Gallstones were noted. General surgery following - appreciate recommendations. He is scheduled for laparoscopic cholecystectomy this afternoon with Dr Cardona. Continue supportive care with analgesics and antiemetics as needed. (2) UTI (urinary tract infection): Qualifiers: Urinary tract infection type: acute cystitis Hematuria presence: without hematuria Qualified Code(s): N30.00 - Acute cystitis without hematuria Code(s): N39.0 - Urinary tract infection, site not specified Status: Acute Assessment and Plan: Urine culture grew Klebsiella. Continue IV Rocephin today (day 4). (3) Cholelithiasis: Onset Date: Unknown Qualifiers: Cholelithiasis location: other site Biliary obstruction: without biliary obstruction Qualified Code(s): K80.80 - Other cholelithiasis without obstruction Code(s): K80.20 - Calculus of gallbladder without cholecystitis without obstruction Status: Acute Assessment and Plan: Scheduled for lap brenda with Dr Cardona later today. (4) Hypertension: Onset Date: Unknown Qualifiers: Hypertension type: essential hypertension Qualified Code(s): I10 - Essential (primary) hypertension Code(s): I10 - Essential (primary) hypertension Status: Chronic Assessment and Plan: Stable, last 135/65. Resume his home lisinopril in AM since a diet has been restarted. . (5) Diabetes: Onset Date: Unknown Qualifiers: Diabetes mellitus type: type 2 Diabetes mellitus terminal make up operator insulin use: without assisted use Diabetes mellitus complication status: without complication Qualified Code(s): E11.9 - Type 2 diabetes mellitus without complications Code(s): E11.9 - Type 2 diabetes mellitus without complications Status: Chronic Assessment and Plan: Hgb A1c 5.9 %. His home metformin is on hold. Continue monitor with Accu-Cheks and cover with SSI. (6) HLD (hyperlipidemia): Qualifiers: Hyperlipidemia type: unspecified Qualified Code(s): E78.5 - Hyperlipidemia, unspecified Code(s): E78.5 - Hyperlipidemia, unspecified Status: Chronic Assessment and Plan: Resume home statin therapy. (7) Sleep apnea: Onset Date: Unknown Qualifiers: Sleep apnea type: unspecified type Qualified Code(s): G47.30 - Sleep apnea, unspecified Code(s): G47.30 - Sleep apnea, unspecified Status: Chronic Assessment and Plan: CPAP. (8) Anxiety: Onset Date: Unknown Code(s): F41.9 - Anxiety disorder, unspecified Status: Chronic Assessment and Plan: Resume his home medications. Ativan as needed. Mood is stable. (9) Back pain: Qualifiers: Chronicity: chronic Back pain laterality: unspecified Sciatica presence: unspecified whether sciatica present Back pain location: low back pain Qualified Code(s): M54.5 - Low back pain; G89.29 - Other chronic pain
--- NOTE | 2020-05-12 11:12 | PC.NURSE ---
To OR per stretcher, IV Saline locked.
[2020-05-12] MEDS: LACTATED RINGERS 1,000 ML 30 ML IV CONT ×2 (11:20→14:30)
[2020-05-12] MEDS: KETOROLAC 15 MG/ML VIAL (*BKC) IV PUSH (11:50)
[2020-05-12] MEDS: ACETAMINOPHEN 500 MG TABLET 1000 MG PO (11:50)
[2020-05-12 12:13] LABS: Glucose Point of Care 102 (65-105)
--- NOTE | 2020-05-12 12:26 | WPDANESEPPF ---
Anes - Initial Pre Proc Eval Procedure: Operation Date: 05/12/20 12:15 Proposed Procedures p Laparoscopic Cholecystectomy with Intraoperative Cholangiograms - Hugh Cardona MD Date/Time: 05/12/20 12:26 Surgeon: LAI Padilla Pre Op Diagnosis: pancreatitis Patient Data Age: 70 Gender: M Height: 5 ft 8 in Weight: 125 kg Last Vital Signs Temp 97.4 F L 05/12/20 11:22 Pulse 48 L 05/12/20 11:22 Resp 18 05/12/20 11:22 BP 136/89 05/12/20 11:22 Pulse Ox 99 05/12/20 11:22 Allergies Allergy/AdvReac Type Severity Reaction Status Date / Time No Known Allergies Allergy Verified 05/08/20 13:37 Home Medications Medication Instructions Recorded Confirmed Type omeprazole magnesium [Prilosec OTC] 20 mg PO BID #30 tablet 08/16/19 05/08/20 Rx aripiprazole 2.5 mg PO DAILY 05/08/20 05/08/20 History aspirin [Adult Low Dose Aspirin] 81 mg PO DAILY 05/08/20 05/08/20 History atorvastatin 40 mg PO HS 05/08/20 05/08/20 History budesonide-formoterol [Symbicort] 2 puff INHALATION Q12H 05/08/20 05/08/20 History bupropion HCl 300 mg PO QAM 05/08/20 05/08/20 History cholecalciferol (vitamin D3) 50 mcg PO DAILY 05/08/20 05/08/20 History [Vitamin D3] hydrocodone-acetaminophen 1 tablet PO Q6H PRN 05/08/20 05/08/20 History ipratropium-albuterol 3 ml INHALATION QID PRN 05/08/20 05/08/20 History lisinopril 10 mg PO DAILY 05/08/20 05/08/20 History metformin 500 mg PO BID 05/08/20 05/08/20 History morphine 15 mg PO Q12H 05/08/20 05/08/20 History pregabalin [Lyrica] 225 mg PO BID 05/08/20 05/08/20 History tiotropium bromide [Spiriva 2 puff INHALATION DAILY 05/08/20 05/08/20 History Respimat] Laboratory Tests 05/11/20 05/11/20 05/12/20 16:41 20:53 05:16 WBC 7.0 K/mm3 K/mm3 (4.5-10.0) RBC 4.12 M/mm3 L M/mm3 (4.6-6.20) Hgb 10.4 g/dL L g/dL (14.0-18.0) Hct 32.8 % L % (42.0-52.0) MCV 79.6 fl L fl (80-100) MCH 25.2 pg L pg (26-34) MCHC 31.7 g/dl L g/dl (32-36) RDW 15.5 % H % (11.5-14.5) Plt Count 210 k/mm3 k/mm3 (150-375) MPV 11.6 fl H fl (7.4-10.4) Immature Gran % (Auto) 0.9 % H % (0-0.5) Neut % (Auto) 71.7 % % (45.5-73.1) Lymph % (Auto) 15.9 % L % (18.3-44.2) [place] % (Auto) 8.6 % H % (2.6-8.5) Eos % (Auto) 2.3 % % (0-4.4) Baso % (Auto) 0.6 % % (0.2-1.2) Lymph # (Auto) 1.11 K/mm3 K/mm3 (0.9-3.2) [place] # (Auto) 0.6 K/mm3 K/mm3 (0.1-0.6) Eos # (Auto) 0.2 K/mm3 K/mm3 (0-0.3) Baso # (Auto) 0.0 K/mm3 K/mm3 (0.0-0.1) Abs Immat Gran (auto) 0.06 K/mm3 H K/mm3 (0.00-0.031) Absolute Neuts (auto) 5.0 K/mm3 K/mm3 (1.3-6.7) Absolute Nucleated RBC 0.0 K/mm3 K/mm3 (0.0-0.012) Nucleated RBC % 0.0 % % (0.0-0.2) Sodium Potassium Chloride Carbon Dioxide Anion Gap BUN Creatinine Estim Creat Clear Calc Estimated GFR Glucose POC Capillary Glucose 103 mg/dl mg/dl 110 mg/dl mg/dl (65-105) (65-105) Calcium Total Bilirubin AST ALT Alkaline Phosphatase Total Protein Albumin Lipase 05/12/20 05/12/20 05/12/20 05:16 07:42 12:09 WBC RBC Hgb Hct MCV MCH MCHC RDW Plt Count MPV Immature Gran % (Auto) Neut % (Auto) Lymph % (Auto) [place] % (Auto) Eos % (Auto) Baso % (Auto) Lymph # (Auto) [place] # (Auto) Eos # (Auto) Baso # (Auto) Abs Immat Gran (auto) Absolute Neuts (a
--- NOTE | 2020-05-12 12:26 | WPDHPUPDATE1 ---
History and Physical Update Update Date/Time: 05/12/20 12:26 History and Physical has been reviewed, including an updated exam of the patient. There are NO changes in the patient's condition. Risks, benefits, and alternatives Of a laparoscopic cholecystectomy with intraoperative cholangiogram and possible open cholecystectomy have been discussed and questions answered. Patient agrees to proceed with procedure.
[2020-05-12] MEDS: ceFAZolin 3 GM/D5W 100 ML 100 ML IVPB (12:43)
[2020-05-12] MEDS: BUPIVACAINE/EPINEPHRINE 0.5% 10 ML VIAL 30 ML INFILTRATE (13:22)
--- NOTE | 2020-05-12 14:37 | P.OP_ITS ---
Procedure Note - Detailed Date of procedure: 05/12/20 Pre-op diagnosis: pancreatitis 2. Chronic cholecystitis with cholelithiasis Post-op diagnosis: other ( chronic cholecystitis with cholelithiasis) Procedure performed: Laparoscopic cholecystectomy with intraoperative cholangiogram. Description of procedure: Procedure Details: Patient was seen preoperatively in the holding area and risks, benefits and alternatives confirmed. Patient was taken to the operating room and general anesthesia was induced. A time out was then preformed with the surgery team confirming patient and site of surgery. The abdomen was prepped and draped in the usual sterile fashion. Incision was made just below the umbilicus. Two stay sutures of O- Vicryl were used to elevate the mid-line fascia beneath the umbilicus and a small incision was made under direct vision. The peritoneum was entered. The 12 mm Lovelace cannula was introduced under direct vision. First under low flow and then under high flow the abdomen was insufflated with carbon dioxide never exceeding a pressure of 14. Three 5 mm trocars were then introduced under direct vision. The following trocars were introduced under direct vision: a 5 mm in the epigastrium and two 5 mm trocars along the right costal margin. There were no significant adhesions to the underside of the gallbladder. The gall bladder was grasped and the cystic duct and artery were dissected free and clipped with an 5 mm endo-clip scientific software developer. A small hole was made in the cystic duct with endoshears and a cholagio-cath introduced. A cholangiogram was obtained revealing free flow into the cystic duct, common bile duct, common hepatic, right and left hepatic ducts with free flow into the duodenum with no filling defects in the intra nor extrahepatic biliary tree and no dilation. held it comment that there appeared to be a slight stricture in the distal mid common bile duct but was not inhibiting flow into the duodenum. The catheter was removed and the cystic duct was clipped with a 5 mm endoclip-scientific software developer. The cystic duct was then transected. The cystic artery was also transected at this point. As I began dissecting the gallbladder off the gallbladder bed there was found to be a small posterior branch of the cystic artery and this was clipped with 3 clips. I then touch this with cautery and the bleeding seemed to be controlled at that point. The gall bladder was removed using electrocautery and then removed using a large 10 mm grasper via the umbilical incision. The trocars were removed visualizing hemostasis and the remaining gas evacuated. The large trocar site at the umbilicus was closed with an 0 vicryl figure of 8 suture. The 2 stay sutures mentioned above on either side of the fascia were also tied together to help approximate this midline fascia. Further local anesthetic was placed into each incision for postop pain control. The skin incisions were closed with a subcuticular of 4-0 Monocryl. Surgical glue then was applied to all the incisions. Patient tolerated the procedure well was taken to the recovery room in good condition. Anesthesia: ROCKA Surgeon: Hugh Cardona MD Craps Dealer: SASHA Hernandez, OR 1st assist Drains: No Packing: No Pathology: yes (The gallbladder) Complications: No immediate complications Condition: stable Disposition: PACU Findings: gallbladder was fairly large. Upon removal no palpable stones could be felt however there was a lot of fluid in the gallbladder so was fairly distended. The cholangiogram did not show any filling defects. I believe the patient does not need to have an ERCP. Since his lipase was normal today we will begin trying to advance his diet postoperatively.
[2020-05-12 14:38] LABS: Glucose Point of Care 160 (65-105)
[2020-05-12] MEDS: ONDANSETRON INJ 4 MG/2 ML VIAL IV PUSH (14:48)
--- NOTE | 2020-05-12 15:40 | PC.NURSE ---
Returned from OR per Stretcher. Report received from Odalys.
[2020-05-12 16:25] LABS: Glucose Point of Care 114 (65-105)
--- NOTE | 2020-05-12 20:21 | P.OP_ITS ---
Procedure Note - Detailed Date of procedure: 05/12/20 Pre-op diagnosis: pancreatitis 2.Chronic Cholecystitis with cholelithiasis. Post-op diagnosis: same Procedure performed: Laparoscopic cholecystectomy with intraoperative cholangiogram. Description of procedure: Procedure Details: Patient was seen preoperatively in the holding area and risks, benefits and alternatives confirmed. Patient was taken to the operating room and general anesthesia was induced. A time out was then preformed with the surgery team confirming patient and site of surgery. The abdomen was prepped and draped in the usual sterile fashion. Incision was made just below the umbilicus. Two stay sutures of O- Vicryl were used to elevate the mid-line fascia beneath the umbilicus and a small incision was made under direct vision. The peritoneum was entered. The 12 mm Lovelace cannula was introduced under direct vision. First under low flow and then under high flow the abdomen was insufflated with carbon dioxide never exceeding a pressure of 14. Three 5 mm trocars were then introduced under direct vision. The following trocars were introduced under direct vision: a 5 mm in the epigastrium and two 5 mm trocars along the right costal margin. There were no significant adhesions between the omentum and the gallbladder. The gall bladder was grasped and the cystic duct and artery were dissected free and clipped with an 5 mm endo-clip airfield engineer officer. A small hole was made in the cystic duct with endoshears and a cholagio-cath introduced. A cholangiogram was obtained revealing free flow into the cystic duct, common bile duct, common hepatic, right and left hepatic ducts with free flow into the duodenum with no filling defects in the intra nor extrahepatic biliary tree and no dilation. The catheter was removed and the cystic duct was c lipped with a 5 mm endoclip-airfield engineer officer. The cystic duct was then transected. The cystic artery was also transected at this point. The gall bladder was removed using electrocautery and then removed using a large 10 mm grasper via the umbilical incision. The trocars were removed visualizing hemostasis and the remaining gas evacuated. The large trocar site at the umbilicus was closed with [an 0 vicryl figure of 8 suture]. The 2 stay sutures mentioned above on either side of the fascia were also tied together to help approximate this midline fascia. Further local anesthetic was placed into each incision for postop pain control. The skin incisions were closed with a subcuticular of [4-0 Monocryl]. Surgical glue then was applied to all the incisions. Patient tolerated the procedure well was taken to the recovery room in good condition. Anesthesia: ROCKA Surgeon: Hugh Cardona MD Lease Attendant: SASHA Hernandez, OR assistant curator. Estimated blood loss (mL): 25 Drains: No Packing: No Pathology: yes (The gallbladder) Complications: No immediate complications Condition: stable Disposition: PACU Findings: The GB was quite large. Upon removal there were no palpable stones in the GB, but it was quite full of fluid so they may not have been easily palpble if small. The cholangiogram showed no stones and the pts. lipase was normal this AM so I will allow the pt the advance toward a low fat diet post-op if he is not nauseated.
[2020-05-12] MEDS: ATORVASTATIN 40 MG TABLET PO (20:49)
[2020-05-12] MEDS: SENNA/DOCUSATE SODIUM TABLET 2 TAB PO (20:49)
[2020-05-12] MEDS: PANTOPRAZOLE SODIUM IV 40 MG VIAL IV PUSH (20:50)
[2020-05-12 21:14] LABS: Glucose Point of Care 128 (65-105)
[2020-05-13] VITALS: BP 112/60; PULSE 104; RESP 20; TEMP 36.4; O2SAT 93
[2020-05-13 01:13] VITALS: BP 112/79; PULSE 104; RESP 20; TEMP 36.4; O2SAT 93
[2020-05-13 04:00] VITALS: BP 114/58; PULSE 75; RESP 22; TEMP 36.2; O2SAT 94
[2020-05-13 05:13] VITALS: BP 114/58; PULSE 75; RESP 22; TEMP 36.2; O2SAT 94
[2020-05-13] MEDS: HYDROcodone/acetaminophen (*CRX) 7.5-325 MG TABLET 1 TAB PO ×2 (06:10→10:26)
[2020-05-13 06:26] LABS: Glucose Point of Care 86 (65-105)
[2020-05-13 07:23] LABS: Hematocrit 36.1 % (42.0-52.0); Hemoglobin 11.4 g/dL (14.0-18.0); Mean Corpuscular HGB Conc 31.6 g/dl (32-36); Mean Corpuscular Hemoglobin 25.8 pg (26-34); Mean Corpuscular Volume 81.7 fl (80-100); Mean Platelet Volume 12.1 fl (7.4-10.4); Platelet Count Result 276 k/mm3 (150-375); Red Blood Count 4.42 M/mm3 (4.6-6.20); Red Cell Distribution Width 15.2 % (11.5-14.5); White Blood Count 10.3 K/mm3 (4.5-10.0)
[2020-05-13 07:34] LABS: Magnesium 2.2 mg/dL (1.6-2.3)
[2020-05-13 07:37] LABS: Alanine Aminotransferase 72 U/L (4-50); Alkaline Phosphatase 138 U/L (38-126); Anion Gap 10 mmol/L (8-16); Aspartate Amino Transferase 65 U/L (17-59); Bilirubin,Total 0.8 mg/dL (0.2-1.3); Blood Urea Nitrogen 12 mg/dL (9-20); Calcium 9.2 mg/dL (8.4-10.2); Carbon Dioxide 28 mmol/L (22-30); Chloride 102 mmol/L (98-107); Estimated CRCL calculation 89 ml/min; Estimated Glomerular Filt Rate > 60; Glucose 120 mg/dL (75-110); Lipase 128 U/L (23-300); Potassium 3.9 mmol/L (3.4-5.0); Sodium 140 mmol/L (137-145)
[2020-05-13 07:54] LABS: Glucose Point of Care 107 (65-105)
[2020-05-13] MEDS: ARIPiprazole 2.5 MG TABLET PO (08:49)
[2020-05-13] MEDS: buPROPion HCL XL (24 HR) 150 MG TABCR 300 MG PO (08:49)
[2020-05-13] MEDS: ENOXAPARIN 40 MG/0.4 ML SYRINGE SUB-Q (08:49)
[2020-05-13] MEDS: lisinopriL 10 MG TABLET PO (08:49)
[2020-05-13] MEDS: CHOLECALCIFEROL 1,000 UNITS TABLET 2000 UNITS PO (08:49)
[2020-05-13] MEDS: PANTOPRAZOLE SODIUM IV 40 MG VIAL IV PUSH (08:50)
[2020-05-13 09:10] VITALS: BP 135/67; PULSE 74; RESP 22; TEMP 36; O2SAT 99
[2020-05-13] MEDS: PREGABALIN (*CRX) 75 MG CAPSULE 225 MG PO (10:26)
--- NOTE | 2020-05-13 10:42 | PM.DS ---
DS: Admitting Diagnosis Admitting Diagnosis Admitting Diagnosis: pancreatitis DS: Discharge Diagnosis Discharge Diagnosis (1) Pancreatitis: Qualifiers: Chronicity: acute Pancreatitis type: unspecified pancreatitis type Acute pancreatitis complication: unspecified Qualified Code(s): K85.90 - Acute pancreatitis without necrosis or infection, unspecified Code(s): K85.90 - Acute pancreatitis without necrosis or infection, unspecified Status: Acute Assessment and Plan: ------Patient presents with ongoing issues of intermittent abdominal discomfort; evidence of acute pancreatitis on imaging. Lipase up to 450 on arrival, now resolved to 128 today. Bili was elevated but normal today. Gallstones were noted and pt underwent laparoscopic cholecystectomy 05/12 with no complications. Plan to f/u with surgery outpt. Pt is eating and drinking well and feels better than he has in months. (2) UTI (urinary tract infection): Qualifiers: Urinary tract infection type: acute cystitis Hematuria presence: without hematuria Qualified Code(s): N30.00 - Acute cystitis without hematuria Code(s): N39.0 - Urinary tract infection, site not specified Status: Acute Assessment and Plan: -----Urine culture grew Klebsiella. pt received ceftriaxone and discharged on cefdinir (3) Cholelithiasis: Onset Date: Unknown Qualifiers: Cholelithiasis location: other site Biliary obstruction: without biliary obstruction Qualified Code(s): K80.80 - Other cholelithiasis without obstruction Code(s): K80.20 - Calculus of gallbladder without cholecystitis without obstruction Status: Acute Assessment and Plan: -----as stated above. Pathology pending. (4) Hypertension: Onset Date: Unknown Qualifiers: Hypertension type: essential hypertension Qualified Code(s): I10 - Essential (primary) hypertension Code(s): I10 - Essential (primary) hypertension Status: Chronic Assessment and Plan: Last bp 93/71 but asymptomatic and doing well. (5) Diabetes: Onset Date: Unknown Qualifiers: Diabetes mellitus type: type 2 Diabetes mellitus detention insulin use: without detention use Diabetes mellitus complication status: without complication Qualified Code(s): E11.9 - Type 2 diabetes mellitus without complications Code(s): E11.9 - Type 2 diabetes mellitus without complications Status: Chronic Assessment and Plan: -----Hgb A1c 5.9 %. Continue metformin (6) HLD (hyperlipidemia): Qualifiers: Hyperlipidemia type: unspecified Qualified Code(s): E78.5 - Hyperlipidemia, unspecified Code(s): E78.5 - Hyperlipidemia, unspecified Status: Chronic Assessment and Plan: -----Resume home statin therapy. (7) Sleep apnea: Onset Date: Unknown Qualifiers: Sleep apnea type: unspecified type Qualified Code(s): G47.30 - Sleep apnea, unspecified Code(s): G47.30 - Sleep apnea, unspecified Status: Chronic Assessment and Plan: -----CPAP. (8) Anxiety: Onset Date: Unknown Code(s): F41.9 - Anxiety disorder, unspecified Status: Chronic Assessment and Plan: -----Chronic and stable. Continue home meds. (9) Back pain: Qualifiers: Back pain location: low back pain Chronicity: chronic Back pain laterality: unspecified Sciatica presence: unspecified whether sciatica present Qualified Code(s): M54.5 - Low back pain; G89.29 - Other chronic pain Code(s): M54.9 - Dorsalgia, unspecified Status: Chronic Assessment and Plan: -----Patient has a spinal stimulator and follows with pain management outpatient. DS: Summary Hospital Course Reason for hospitalization: Pancreatitis Hospital Course: Patient is 70-year-old male who presented emergency room for ongoing abd
[2020-05-13 11:30] LABS: Glucose Point of Care 84 (65-105)
[2020-05-13 13:05] VITALS: BP 93/71; PULSE 74; RESP 20; TEMP 36.2; O2SAT 96
--- NOTE | 2020-05-13 13:49 | PM.PNGS ---
Progress Note: A&P Assessment and Plan (1) Cholelithiasis: Onset Date: Unknown Qualifiers: Cholelithiasis location: other site Biliary obstruction: without biliary obstruction Qualified Code(s): K80.80 - Other cholelithiasis without obstruction Code(s): K80.20 - Calculus of gallbladder without cholecystitis without obstruction Status: Acute Assessment and Plan: Doing well postop day 1 status post laparoscopic cholecystectomy with intraoperative cholangiogram showing no common bile duct stones. Follow-up labs look good this morning with a normal lipase. Patient beginning to advance diet today. Patient has states he is decided to stay away from oral morphine at home. He will try hydrocodone and try to wean back on some was narcotics. I encouraged him on this. Okay from surgical standpoint to go home today. I will follow him up in the office with an outpatient visit in about 2 weeks. (2) Opiate abuse, continuous: Code(s): F11.10 - Opioid abuse, uncomplicated Status: Acute (3) Hypertension: Onset Date: Unknown Qualifiers: Hypertension type: essential hypertension Qualified Code(s): I10 - Essential (primary) hypertension Code(s): I10 - Essential (primary) hypertension Status: Chronic (4) Sleep apnea: Onset Date: Unknown Qualifiers: Sleep apnea type: unspecified type Qualified Code(s): G47.30 - Sleep apnea, unspecified Code(s): G47.30 - Sleep apnea, unspecified Status: Chronic Subjective Subjective Date/Time Seen: 05/13/20 13:49 Post Op day: 1 ( doing well and tolerating clear liquids) Patient reports: feels better Interval history: patient is sitting up in chair when I entered the room. He had just finished a clear liquid breakfast and tolerated okay. No bowel movement yet. Denies much incisional pain. Some discomfort at the level of the umbilicus. Review of Systems Constitutional: Constitutional: Reports no additional constitutional complaints ENT: Reports other (Mucous Membranes moist.) Cardiovascular: Cardiovascular: Denies dyspnea Respiratory: Respiratory: Denies pain on inspiration and Denies dyspnea Musculoskeletal: Musculoskeletal: Reports other (No calf swelling or edema) Integumentary/Breasts: Skin/Breast: Reports system reviewed and no additional complaints, except as docu Exam Const: General: cooperative, no acute distress, alert and awake Orientation/consciousness: patient oriented x3 HENMT: Mouth: Yes moist mucous membranes Neck: Neck: normal visual inspection Chest: Chest palpation & inspection: normal inspection of the chest Resp: Effort & Inspection: normal respiratory effort Auscultation: clear to auscultation bilaterally Cardio: Jugular venous distension: no JVD Rate: regular rate Rhythm: regular rhythm GI: Inspection: other ( Laparoscopic incisions clean and dry) GI Palp: Yes Soft to palpation Auscultation: normal bowel sounds Rectal Exam: deferred Neuro: General: patient oriented x3 and moves all extremities Speech: normal speech Extrem: General: normal exam except as noted Psych: Mental Status: mental status grossly normal Speech and movement: Normal speech and movement present Affect: normal affect Thought content: Yes Normal thought content present Objective Data Vital Signs Vital Signs: Vital Signs - 24 hr 05/12/20 14:30 05/12/20 14:45 05/12/20 15:00 Temperature 36.3 C L Pulse Rate 82 76 74 Respiratory Rate 22 H 15 14 Blood Pressure 128/59 L 130/64 129/71 Pulse Oximetry 98 100 93 05/12/20 15:15 05/12/20 15:40 05/12/20 15:55 Temperature 35.9 C L 36.2 C L Pulse Rate 73 113 H 56 L Respiratory Rate 15 20 22 H Blood Pressure 126/65 113/60 135/65 Pulse Oximetry 95 96 97 05/12/20 16:25 05/12/20 17:25 05/12/20 20:00 Temperature 36.3 C L 36.2 C L 36.2 C L Pulse Rate 69 73 64 Respiratory Rate 20 20 22 H Blood Pressure 127/83 138
[2020-05-13] MEDS: HYDROcodone/acetaminophen (*CRX) 5-325 MG TABLET 1 TAB PO (15:20)
== END 2020-05-13 15:30 | disposition home or self-care (01) | DRG 418 ==
LOC: ANHED 15:11 → ANH2MED 16:18
PROVIDERS: Family Medicine; Nurse Practitioner; Physician Assistant; Surgery; Admitting Provider Family Medicine; Emergency Provider Emergency Medicine; Visit Provider Physician Assistant
PROC: 0FT44ZZ Resection of Gallbladder, Percutaneous Endoscopic Approach (ICD-10-PCS; CPT 47562; principal; 2020-05-12 12:15)
DX: K85.10 Biliary acute pancreatitis without necrosis or infection (principal); N39.0 Urinary tract infection, site not specified; K80.10 Calculus of gallbladder with chronic cholecystitis without obstruction; Z68.41 Body mass index [BMI] 40.0-44.9, adult; E87.1 Hypo-osmolality and hyponatremia; B96.1 Klebsiella pneumoniae [K. pneumoniae] as the cause of diseases classified elsewhere; F41.8 Other specified anxiety disorders; M19.90 Unspecified osteoarthritis, unspecified site; K21.9 Gastro-esophageal reflux disease without esophagitis; E11.9 Type 2 diabetes mellitus without complications; E78.5 Hyperlipidemia, unspecified; I10 Essential (primary) hypertension; G47.30 Sleep apnea, unspecified; E66.01 Morbid (severe) obesity due to excess calories; M54.5 Low back pain; G89.29 Other chronic pain; F11.10 Opioid abuse, uncomplicated; Z87.891 Personal history of nicotine dependence
CPT/HCPCS: 36415; 71046; 74177; 74300; 76705; 80053; 80061; 81001; 82150; 83036; 83690; 83735; 84443; 84484; 85025; 85027; 85610; 85730; 87077; 87086; 87088; 87186; 88304; 93005; 94640; 96361; 96365; 96367; 96375; 96376; 99285; A9270; C9113; G0378; J0131; J0330; J0690; J0696; J1100; J1170; J1650; J1885; J2060; J2270; J2405; J2704; J2710; J3010; J7030; J7120; Q9966; Q9967

== ENCOUNTER 2022-08-03 09:30 | Outpatient (RCR) | payer OTHER, SELFPAY ==
[2022-04-09 08:16] LABS: Glucose Point of Care 185 mg/dl (65-105)
[2022-04-12 08:06] LABS: Glucose Point of Care 124 mg/dl (65-105)
== END 2022-08-03 23:59 | disposition home or self-care (01) ==
DX: J44.9 Chronic obstructive pulmonary disease, unspecified (principal)
CPT/HCPCS: 94625

== ENCOUNTER 2022-09-02 10:00 | Outpatient (RCR) | payer OTHER, SELFPAY | END 2022-09-02 14:06 | disposition home or self-care (01) | DX: J44.9 Chronic obstructive pulmonary disease, unspecified (principal) | CPT/HCPCS: 94625 ==

== ENCOUNTER 2022-11-02 14:20 | Emergency (ER) | payer MEDICARE, OTHER, SELFPAY ==
[2022-11-02] VITALS (15 sets, daily range): BP systolic 132–171; BP diastolic 71–98; PULSE 63–81; RESP 12–24; TEMP 36.2–36.6; O2SAT 93–100
--- NOTE | ~2022-11-02 | XR_ITS ---
EXAMINATION: XR chest 2V DATE: 11/02/2022 14:55 INDICATION: Shortness of breath with exertion TECHNIQUE: PA and lateral views of the chest are obtained. COMPARISON: 05/08/2020 FINDINGS: The lungs are free of acute opacities. No pleural effusion or pneumothorax. The cardiomedia stinal silhouette is normal. There is moderate thoracic spondylosis. IMPRESSION: 1. No acute cardiopulmonary abnormality. Reviewed, dictated and finalized at location L.
--- NOTE | 2022-11-02 14:33 | ECG_ITS ---
Measurements Intervals [place] Rate: 76 P: 59 [place]: 151 QRS: -14 QRSD: 103 T: 48 QT: 375 QTc: 423 Interpretive Statements SINUS RHYTHM WITH SINUS ARRHYTHMIA BASELINE ARTIFACT- I, II, III, AVR, AVL, AVF, V1 NORMAL ECG COMPARED TO ECG 05/10/2020 16:47:17 SINUS ARRHYTHMIA NOW PRESENT Electronically Signed On 11-02-2022 14:47:41 CDT by Murtaza Menchaca D.O.
[2022-11-02 14:50] LABS: Basophils Absolute Auto 0.1 K/mm3 (0.0-0.1); Basophils Percent Auto 0.8 % (0.2-1.2); Eosinophils Absolute Auto 0.1 K/mm3 (0-0.3); Eosinophils Percent Auto 1.4 % (0-4.4); Hematocrit 38.9 % (42.0-52.0); Hemoglobin 12.4 g/dL (14.0-18.0); Immature Granulocyte Percent A 1.2 % (0-0.5); Lymphocytes Absolute Auto 1.51 K/mm3 (0.9-3.2); Lymphocytes Percent Auto 17.7 % (18.3-44.2); Mean Corpuscular HGB Conc 31.9 g/dl (32-36); Mean Corpuscular Volume 84.6 fl (80-100); Mean Platelet Volume 11.5 fl (7.4-10.4); Monocytes Absolute Auto 0.6 K/mm3 (0.1-0.6); Monocytes Percent Auto 7.4 % (2.6-8.5); Neutrophils Absolute Auto 6.1 K/mm3 (1.3-6.7); Neutrophils Percent Auto 71.5 % (45.5-73.1); Platelet Count Result 297 k/mm3 (150-375); Red Cell Distribution Width 14.9 % (11.5-14.5); White Blood Count 8.6 K/mm3 (4.5-10.0)
[2022-11-02 15:03] LABS: Alanine Aminotransferase 26 U/L (6-50); Albumin Level 4.7 g/dL (3.5-5.1); Alkaline Phosphatase 113 U/L (38-126); Anion Gap 9 mmol/L (8-16); Aspartate Amino Transferase 28 U/L (17-59); Bilirubin,Total 0.8 mg/dL (0.2-1.3); Blood Urea Nitrogen 16 mg/dL (9-20); Calcium 9.4 mg/dL (8.4-10.2); Carbon Dioxide 26 mmol/L (22-30); Chloride 103 mmol/L (98-107); Estimated CRCL calculation 80 ml/min; Estimated Glomerular Filt Rate > 60; Glucose 101 mg/dL (65-110); Potassium 4.8 mmol/L (3.4-5.0); Sodium 138 mmol/L (137-145)
--- NOTE | 2022-11-02 20:07 | ED.WEAKNESS ---
HPI - Weakness General Chief complaint: Weakness Stated complaint: n/v, sob Time Seen by Provider: 11/02/22 19:40 History of Present Illness HPI Narrative: This is a 72-year-old male, with recent history of UTI 1 week ago, who presents the emergency department complaining of generalized weakness for the past week. He states he was initially prescribed antibiotics, from which he has had some diarrhea but overall improvement of his dysuria. However in the past week he has noticed dyspnea with exertion and mild cough productive of some sputum without blood. Related Data Home Medications Medication Instructions Recorded Confirmed aripiprazole 5 mg tablet 2.5 mg PO DAILY 05/08/20 06/10/20 aspirin 81 mg tablet,delayed 81 mg PO DAILY 05/08/20 06/10/20 release (Adult Low Dose Aspirin) atorvastatin 40 mg tablet 40 mg PO HS 05/08/20 06/10/20 budesonide-formoterol HFA 160 2 puff inhalation Q12H 05/08/20 06/10/20 mcg-4.5 mcg/actuation aerosol inhaler (Symbicort) bupropion HCl 300 mg 24 hr tablet, 300 mg PO QAM 05/08/20 06/10/20 extended release cholecalciferol (vitamin D3) 50 50 mcg PO DAILY 05/08/20 06/10/20 mcg (2,000 unit) capsule (Vitamin D3) ipratropium 0.5 mg-albuterol 3 mg 3 ml inhalation QID PRN SHORTNESS 05/08/20 06/10/20 (2.5 mg base)/3 mL nebulization OF BREATH soln lisinopril 10 mg tablet 10 mg PO DAILY 05/08/20 06/10/20 metformin 500 mg tablet 500 mg PO BID 05/08/20 06/10/20 pregabalin 225 mg capsule (Lyrica) 225 mg PO BID 05/08/20 06/10/20 tiotropium bromide 2.5 2 puff inhalation DAILY 05/08/20 06/10/20 mcg/actuation mist for inhalation (Spiriva Respimat) Allergies Allergy/AdvReac Type Severity Reaction Status Date / Time No Known Allergies Allergy Verified 11/02/22 20:24 Review of Systems Review of Systems: CONSTITUTIONAL: Denies fever, chills, or sweats. ENT: Denies rhinorrhea, congestion, sore throat, or otalgia. CARDIOVASCULAR: Denies chest pain, palpitations, or edema. RESPIRATORY: cough productive of sputum without blood, dyspnea on exertion. GASTROINTESTINAL: Loose stools without blood denies abdominal pain, nausea, vomiting, GENITOURINARY: Denies dysuria or hematuria. SKIN: Denies rash or itching. MUSCULOSKELETAL: Denies back pain, joint pain, or myalgia. NEUROLOGIC: Denies headache, numbness, dizziness, or weakness. PSYCHIATRIC: Denies anxiety or depression. [facility] Past Medical History Medical History Acute pancreatitis (~05/08/20) Anxiety (Unknown) Arthritis Back pain COPD (chronic obstructive pulmonary disease) Depression Diabetes (Unknown) GERD (gastroesophageal reflux disease) History of drug abuse HLD (hyperlipidemia) Hypertension (Unknown) Migraines Pelvis fracture the patient stated that he has [address] from surgery Sleep apnea (Unknown) Spinal cord stimulator status Surgical History Surgical History History of back surgery 2-3 times History of open reduction and internal fixation (ORIF) procedure lt thumb History of tonsillectomy Hx laparoscopic cholecystectomy Family History Family History Son Acute myocardial infarction Son Drug overdose Father CAD (coronary artery disease) Social History Social History Smoking packs per day: 0.5 Smoking cigarettes per day: 10.0 Years smoked: 30 Smoking pack-years: 15.00 Smoking status: Former smoker Tobacco type: cigarettes Alcohol intake: never Substance use type: opiates and prescription drug Last use: 05/07/2020 Gender identity (if verbalized by the patient): Male Sexual Orientation (if Verbalized by the Patient): Straight or Heterosexual Spiritual care concerns: No Exam Narrative: GENERAL: Well-developed, well-nourished, and in no acute distress.
[2022-11-02 20:37] LABS: NT Pro B Type Natriuretic Pept < 20 pg/mL (19.9-100)
[2022-11-02 21:07] LABS: Influenza A QL RT-PCR Negative (Negative); Influenza B QL RT-PCR Negative (Negative); SARS-CoV-2 RNA PCR Negative
== END 2022-11-02 22:21 | disposition home or self-care (01) ==
PROVIDERS: Emergency Medicine; Emergency Provider Preventive Medicine Aerospace Medicine
DX: R53.1 Weakness (principal); I10 Essential (primary) hypertension; E78.5 Hyperlipidemia, unspecified; E11.9 Type 2 diabetes mellitus without complications; K21.9 Gastro-esophageal reflux disease without esophagitis; F41.9 Anxiety disorder, unspecified; F32.A Depression, unspecified; Z87.891 Personal history of nicotine dependence; Z20.822 Contact with and (suspected) exposure to COVID-19; Z79.82 Long term (current) use of aspirin; Z79.51 Long term (current) use of inhaled steroids; Z79.84 Long term (current) use of oral hypoglycemic drugs
CPT/HCPCS: 36415; 71046; 80053; 83880; 85025; 87636; 93005; 99284

== ENCOUNTER 2025-01-05 13:31 | Inpatient (IN) | payer MEDICARE, OTHER, SELFPAY ==
[2025-01-05] VITALS (11 sets, daily range): BP systolic 102–129; BP diastolic 54–78; PULSE 72–92; RESP 14–20; TEMP 36.2–36.8; O2SAT 93–99; BMI 36.6
--- NOTE | ~2025-01-05 | CT_ITS ---
EXAMINATION: CT brain wo con DATE: 01/05/2025 13:57 INDICATION: Changing gait TECHNIQUE: Computed tomography (CT) of the head was performed without intravenous contrast. Sagittal and coronal reconstructions were performed. The mA was adjusted according to patient size. Iterative reconstruction technique was employed. The dose-length product was 605.33 mGy-cm. 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 No acute intracranial hemorrhage, acute infarction or abnormal extra axial fluid co llection. There is mild scattered white matter hypoattenuation consistent with chronic small vessel i schemic disease. Symmetric prominence of the sulci consistent with mild age-appropriate diffuse cereb ral volume loss. No mass/mass effect. Ventricles are normal and symmetric. The orbits, paranasal sinu ses and mastoid air cells are normal. IMPRESSION: 1. 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 No acute intracranial process. 2. Age-related changes including mild diffuse on loss and mild scattered white matter hypoattenuation consistent with chronic small vessel ischemic disease. Reviewed, dictated and finalized at location A. IMPRESSION: 1. Small old lacunar infarcts at the anterior limb of the right internal capsul e and at the left subinsular white matter. No acute intracranial process. 2. Age-related changes including mild diffuse on loss and mild scattered white matter hypoattenuation consistent with chronic small vessel ischemic disease.
--- NOTE | ~2025-01-05 | XR_ITS ---
XR chest 1V portable Ordering provider: Netta Sawyer MD History: 74 years Male with . DIZZINESS . Comparison: November 02, 2022 FINDINGS: MEDIASTINUM: The cardiac silhouette is slightly enlarged. LUNGS: No infiltrates, effusions or pneumothorax. OTHER: No free air under the diaphragm. Degenerative changes of the spine. Dextroscoliosis. IMPRESSION: No acute cardiopulmonary pathology. Reviewed, dictated and finalized at location A.
--- OUTSIDE RECORDS SUMMARY | 2025-01-05 13:34 | XMS_ITS | Clinical Summary ---
Author Organization [facility] Address [address] [place] [address] Phone Care Team Providers Care Financial Market Dealer Name Role Phone Unavailable Primary Care Provider Unavailabl e Allergies No known active allergies Medications cyclobenzaprine (FLEXERIL) 10 mg Oral tablet Take 10 mg by mouth 3 times daily as needed. Active nortriptyline (PAMELOR) 50 mg Oral capsule Take 50 mg by mouth daily at bedtime. Active omeprazole (PRILOSEC) 20 mg Oral CpDR Take 20 mg by mouth 2 times daily. Active sertraline (ZOLOFT) 100 mg Oral tablet Take 100 mg by mouth daily. Active simvastatin (ZOCOR) 80 mg Oral tablet Take 80 mg by mouth Daily LATE. Active morphine (MS IR) 30 mg Oral tablet Take 15 mg by mouth every 12 hours. Active HYDROcodone-stefania taminophen (NORCO) 7.5-325 mg Oral Tab Take 1 Tab by mouth every 4 hours as needed for Pain, Moderate. 20 Tab 0 2 Active doxycycline hyclate (VIBRAMYCIN) 100 mg Oral tablet Take 0.5 Tabs by mouth 2 times daily. 20 Tab 0 2 Active mupirocin (BACTROBAN) 2 % Topical Oint Apply to affected area daily. 22 Gram 3 2 Active Additional Information Patient taking differently:TopicalDAILY PRN, Reported on 09/27/2019 metFORMIN (GLUCOPHAGE) 500 mg tablet Take 500 mg by mouth 2 times daily with meals. Active albuterol HFA 90 mcg inhaler Take 2 Puffs by inhalation every 8 hours as needed for Shortness of Breath. Active aspirin (ECOTRIN EC) 81 mg Tablet, Delayed Release (E.C.) Take 81 mg by mouth daily. Active budesonide-form oteroL (SYMBICORT) 160-4.5 mcg/actuation HFA Aerosol Inhaler Take 2 Puffs by inhalation 1 time daily as needed. Active buPROPion HCL (WELLBUTRIN XL) 300 mg Extended Release 24 hour tablet Take 300 mg by mouth daily at bedtime. Active carboxymethylce llulose sodium (REFRESH PLUS) 0.5 % solution Administer 1 Drop in both eyes 2 times daily as needed for Discomfort. Active diclofenac sodium (VOLTAREN) 75 mg Tablet, Delayed Release (E.C.) Take 75 mg by mouth 2 times daily as needed. Active DULoxetine (CYMBALTA) 30 mg Capsule, Delayed Release(E.C.) Take 30 mg by mouth daily at bedtime. Active lisinopril (PRINIVIL) 20 mg tablet Take 20 mg by mouth daily at bedtime. Active naloxone 2 mg/actuation [place], Non-Aerosol Administer 1 [place] in each nostril 1 time daily as needed. Active polyethylene glycol 3350 (MIRALAX) 17 gram/dose Powder Take 17 Grams by mouth 1 time daily as needed for Constipation. Dissolve in 8 ounces of fluid and drink entire liquid Active pregabalin (LYRICA) 225 mg Capsule Take 225 mg by mouth every 12 hours. Active QUEtiapine (SEROquel) 100 mg tablet Take 50 mg by mouth 1 time daily as needed. Active atorvastatin (LIPITOR) 40 mg tablet Take 40 mg by mouth 2 times daily. Active Cholecalciferol , Vitamin D3, 3,000 unit Tablet Take 2,000 Units by mouth daily. Active GABAPENTIN ORAL Take 300 mg by mouth 2 times daily. 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 Gender Identity Not on file Sexual Orientation Not on file Occupation Industry Job Start Date Job End Date Not on file Not on file Not on file Not on file Last Filed Vital Signs Vital Sign Reading Time Taken Comments Blood Pressure 140/74 10/11/2019 3:21 PM EARTH SCIENCE FACULTY MEMBER Pulse 68 10/11/2019 3:21 PM EARTH SCIENCE FACULTY MEMBER Temperature 36.1 C (96.9 F) 10/11/2019 3:21 PM EARTH SCIENCE FACULTY MEMBER Respiratory Rate 14 10/11/2019 3:21 PM EARTH SCIENCE FACULTY MEMBER Oxygen Saturation 95% 10/11/2019 3:21 PM EARTH SCIENCE FACULTY MEMBER Inhaled Oxygen Concentration - - Weight 130.6 kg (288 lb) 10/11/2019 9:19 AM EARTH SCIENCE FACULTY MEMBER Height 172.7 cm (5' 8) 10/11/2019 9:19 AM EARTH SCIENCE FACULTY MEMBER Body Mass Index 43.79 10/11/2019 9:19 AM EARTH SCIENCE FACULTY MEMBER Plan of Treatment Health Maintenance Due Date Last Done Comments DTAP/TDAP/TD VACCINES (1 - Tdap) 02/04/1971 COLORECTAL SCREENING 02/04/1997 Colorectal Cancer Screening 02/04/1997 FIT-DNA Q 3 years 02/04/1997 FIT/FOBT Q 1 year 02/04/1997 Flex Sig/CT Colonography Q 5 years 02/04/1997 PNEUMOCOCCAL VACCINE 50+ YEARS (1 of 1 - PCV) 02/05/20 02 ZOSTER VACCINE (1 of 2) 02/04/2002 INFLUENZA VACCINE (#1) 2024 RSV VACCINE (60+ or ) (1 - 1-dose 75+ series) 02/04/2027 Medical Devices Implanted Type Area Pressure Tester Operator Device Identifier Shelf Expiration Date Model / Serial / Lot Patient Controller Intellis Ptm Implanted:Qty: 1 on 10/11/2019 by Lamar Morales MD at [facility] Integral N/A: Back MEDTRONIC NEUROLOGIC PAIN MGMT [id number] / / [id number] Patient Charge Intellis Rtm Implanted:Qty: 1 on 10/11/2019 by Lamar Morales MD at [facility] Integral N/A: Back [employer]IC NEUROLOGIC PAIN MGMT [id number] / / [id number] Lead Surescan Vectris Mri [id number] - [id number] Implanted:Qty: 1 on 10/11/2019 by Lamar Morales MD at [facility] Lead N/A: Back [employer]- NEUROLOGIC TECH 04/24/2023 [id number] / / [id number] Lead Surescan Vectris Mri [id number] - [id number] Implanted:Qty: 1 on 10/11/2019 by Lamar Morales MD at [facility] Lead N/A: Back [employer]- NEUROLOGIC TECH 04/24/2023 [id number] / / [id number] [place] Titan Kt Accessory 3550-39 Implanted:Qty: 1 on 09/08/2011 by Cristofer Evans DO at [facility] Other Left: Spine Lumbar [employer]- NEUROLOGIC TECH 07/14/2015 3550-39 / / [id number] Pelvic Pins Patient Appliance Installer Implanted:Qty: 1 on 09/09/2011 by Cristofer Evans DO at [facility] [id number] / / [id number] Medtronic Neurostimulator Implanted:Qty: 1 on 10/11/2019 by Lamar Morales MD at [facility] N/A: Back [employer] INC 07/28/2020 [id number] / [id number] / Description:All Medtronic co mponents are processed on requisition [id number]. Explanted Type Area Pressure Tester Operator Device Identifier Shelf Expiration Date Model / Serial / Lot Kit Lead Compact [id number] 3778-60 Implanted:Qty: 1 on 09/08/2011 by Cristofer Evans DO at [facility] Explanted:Qty: 1 on 10/11/2019 at [facility] Lead Left: Spine Lumbar [employer]- NEUROLOGIC TECH 05/29/2015 3778-60 / / [id number] Kit Lead Compact [id number] 3778-60 Implanted:Qty: 1 on 09/08/2011 by Cristofer Evans DO at [facility] Explanted:Qty: 1 on 10/11/2019 at [facility] Lead Left: Spine Lumbar [employer]- NEUROLOGIC TECH 05/29/2015 3778-60 / / [id number] Neurostimulator Rechargeble [id number] - [id number] Implanted:Qty: 1 on 09/08/2011 by Cristofer Evans DO at [facility] Explanted:Qty: 1 on 10/11/2019 at [facility] Left: Spine Lumbar MEDTRONIC [facility] 06/28/2012 [id number] / [id number] / Advance Directives For more information, please contact: [phone] * Full Code (Latest Code Status on File) Date Activated Date Inactivated Comments 10/11/2019 11:03 AM 10/11/2019 5:30 PM * Full Code Date Activated Date Inactivated Comments 10/11/2019 9:15 AM 10/11/2019 11:03 AM * Full Code Date Activated Date Inactivated Comments 09/08/2011 10:35 AM 09/08/2011 7:03 PM * Full Code Date Activated Date Inactivated Comments 09/08/2011 10:31 AM 09/08/2011 10:35 AM
--- NOTE | 2025-01-05 15:03 | PC.NURSE ---
pt called for room, not in WR
--- NOTE | 2025-01-05 15:20 | ED_ITS ---
HPI - General Adult General Chief complaint: Unspecified Stated complaint: change in gait Time Seen by Provider: 01/05/25 15:19 Source: patient Mode of arrival: ambulatory Limitations: no limitations History of Present Illness HPI narrative: 74 YEARS OLD WHITE MALE DROVE HIMSELF TO THE EMERGENCY ROOM COMPLAINING OF FEELING FOGGY, UNSTEADY GAIT FOR THE LAST 2 DAYS, CHEST PAIN LASTED FOR 2 DAYS GOT BETTER YESTERDAY, FEELING DIZZY, BOUNCING BACK IN FORCE AGAINST THE WALL AND FURNITURE. HISTORY OF DIABETES, HYPERTENSION, HYPERLIPIDEMIA CURRENTLY ON BABY ASPIRIN ONCE A DAY. PATIENT DENIES ANY FEVER, CHILLS, NAUSEA, VOMITING, CHEST PAIN, HEADACHE OR URINARY SYMPTOMS ON ARRIVAL TO THE ED HIS MAIN SYMPTOM RIGHT NOW IS UNSTEADINESS AND FEELING LIKE DRUNK. Related Data Home Medications ?Medication ?Instructions ?Recorded ?Confirmed ?Last Taken ?Type aripiprazole 5 mg tablet 2.5 mg PO DAILY 05/08/20 06/10/20 Unknown History aspirin 81 mg tablet,delayed 81 mg PO DAILY 05/08/20 06/10/20 Unknown History release (Adult Low Dose Aspirin) atorvastatin 40 mg tablet 40 mg PO HS 05/08/20 06/10/20 Unknown History budesonide-formoterol HFA 160 2 puff inhalation Q12H 05/08/20 06/10/20 Unknown History mcg-4.5 mcg/actuation aerosol inhaler (Symbicort) bupropion HCl 300 mg 24 hr tablet, 300 mg PO QAM 05/08/20 06/10/20 Unknown History extended release cholecalciferol (vitamin D3) 50 50 mcg PO DAILY 05/08/20 06/10/20 Unknown History mcg (2,000 unit) capsule (Vitamin D3) ipratropium 0.5 mg-albuterol 3 mg 3 ml inhalation QID PRN SHORTNESS 05/08/20 06/10/20 Unknown History (2.5 mg base)/3 mL nebulization OF BREATH soln lisinopril 10 mg tablet 10 mg PO DAILY 05/08/20 06/10/20 Unknown History metformin 500 mg tablet 500 mg PO BID 05/08/20 06/10/20 Unknown History pregabalin 225 mg capsule (Lyrica) 225 mg PO BID 05/08/20 06/10/20 Unknown History tiotropium bromide 2.5 2 puff inhalation DAILY 05/08/20 06/10/20 Unknown History mcg/actuation mist for inhalation (Spiriva Respimat) Allergies Allergy/AdvReac Type Severity Reaction Status Date / Time No Known Allergies Allergy Verified 11/02/22 20:24 Review of Systems 2 Review of Systems: All systems reviewed & are unremarkable except as noted in HPI and below PMFSH Past Medical History Medical History Acute pancreatitis (~05/08/20) Anxiety (Unknown) Arthritis Back pain COPD (chronic obstructive pulmonary disease) Depression Diabetes (Unknown) GERD (gastroesophageal reflux disease) History of drug abuse HLD (hyperlipidemia) Hypertension (Unknown) Migraines Pelvis fracture the patient stated that he has [address] from surgery Sleep apnea (Unknown) Spinal cord stimulator status Surgical History Surgical History History of back surgery 2-3 times History of open reduction and internal fixation (ORIF) procedure lt thumb History of tonsillectomy Hx laparoscopic cholecystectomy Family History Family History Son Acute myocardial infarction Son Drug overdose Father CAD (coronary artery disease) Social History Social History Smoking packs per day: 0.5 Smoking cigarettes per day: 10.0 Years smoked: 30 Smoking pack-years: 15.00 Smoking status: Former smoker Tobacco type: cigarettes Alcohol intake: never Substance use type: opiates and prescription drug Last use: 05/07/2020 Gender identity (if verbalized by the patient): Male Sexual Orientation (if Verbalized by the Patient): Straight or Heterosexual Spiritual care concerns: No Exam 2 Narrative: GENERAL APPEARANCE: WELL-DEVELOPED, WELL-NOURISHED SKIN: NORMAL COLOR HEAD: NORMOCEPHALIC, NONTRAUMATIC EYES: CLEAR CONJUNCTIVA ENT: OROPHARYNX NORMAL, EARS NORMAL, NOSE NORMAL NECK: SUPPLE, NONTENDER CHEST AND RESPIRATORY: AIRWAY PATENT, NO RESPIRATORY DISTRESS, NO ACCESSORY MUSCLE USE HEART: REGULAR RATE/RHYTHM ABDOMEN: SOFT, NONTENDER, NO ORGANOMEGALY, QUIET BOWEL SOUNDS VASCULAR: NORMAL PERIPHERAL PULSES, NORMAL CAPILLARY REFILL. MUSCULOSKELETAL: NORMAL RANGE OF MOTION, NONTENDER BACK NEUROLOGIC: ALERT AND ORIENTED ?3, TITLE ONE TEACHER IS NORMAL TESTED, NO GROSS MOTOR DEFICIT, UNSTEADY GAIT Course Vital Signs Vital signs: Vital Signs Temperature 36.8 C 01/05/25 13:32 Pulse Rate 87 01/05/25 13:32 Respiratory Rate 16 01/05/25 13:32 Blood Pressure 108/54 L 01/05/25 13:32 Pulse Oximetry 99 01/05/25 13:32 Temperature 36.6 C 01/05/25 15:23 Pulse Rate 76 01/05/25 16:53 Respiratory Rate 16 01/05/25 16:53 Blood Pressure 119/73 01/05/25 16:53 Pulse Oximetry 95 01/05/25 16:53 Oxygen Delivery Room Air 01/05/25 15:23 Medical Decision Making MDM Narrative Medical decision making narrative: PATIENT CAME TO THE ED WITH CHEST PAIN AND UNSTEADY GAIT FOR THE LAST 2 DAYS VITAL SIGNS SHOWING BLOOD PRESSURE 108/54 OTHERWISE WITHIN NORMAL LIMIT PHYSICAL EXAMINATION SHOWING PATIENT WITH UNSTEADY GAIT DIFFERENTIAL DIAGNOSIS INCLUDE ORTHOSTATIC HYPOTENSION, ELECTROLYTE IMBALANCE, DEHYDRATION, ACUTE CVA, INTRACRANIAL PATHOLOGY, CORONARY ARTERY DISEASE BLOOD WORKUP TODAY INCLUDES CBC, CMP, TROPONIN, ALCOHOL LEVEL, SHOWED INSIGNIFICANT ABNORMALITY URINALYSIS SHOWED EVIDENCE OF INFECTION CHEST X-RAY SHOWED URINE DRUG SCREEN SHOWED NO ACUTE ABNORMALITY EKG ON ARRIVAL SHOWED NORMAL SINUS RHYTHM AT 74 BEAT PER MINUTE, OCCASIONAL PVCS, LEFT AXIS DEVIATION, NO PREVIOUS EKG AVAILABLE FOR COMPARISON CT HEAD WITHOUT CONTRAST SHOWED NO ACUTE ABNORMALITIES DIAGNOSIS UNSTEADY GAIT, URINARY TRACT INFECTION, ORTHOSTATIC HYPOTENSION. ADMIT TO HOSPITALIST Vital Signs Vital Signs: Vital Signs Temperature 36.8 C 01/05/25 13:32 Pulse Rate 87 01/05/25 13:32 Respiratory Rate 16 01/05/25 13:32 Blood Pressure 108/54 L 01/05/25 13:32 Pulse Oximetry 99 01/05/25 13:32 Temperature 36.6 C 01/05/25 15:23 Pulse Rate 76 01/05/25 16:53 Respiratory Rate 16 01/05/25 16:53 Blood Pressure 119/73 01/05/25 16:53 Pulse Oximetry 95 01/05/25 16:53 Oxygen Delivery Room Air 01/05/25 15:23 Lab Data 01/05/25 16:13 01/05/25 16:13 Labs: Lab Results 01/05/25 01/05/25 Range/Units 16:13 16:14 WBC 9.2 (4.5-10.0) K/mm3 RBC 4.60 (4.6-6.20) M/mm3 Hgb 12.7 L (14.0-18.0) g/dL Hct 40.1 L (42.0-52.0) % MCV 87.2 (80-100) fl MCH 27.6 (26-34) pg MCHC 31.7 L (32-36) g/dl RDW 14.6 H (11.5-14.5) % Plt Count 180 (150-375) k/mm3 MPV 12.0 H (7.4-10.4) fl Immature Gran % (Auto) 0.5 (0-0.5) % Neut % (Auto) 65.8 (45.5-73.1) % Lymph % (Auto) 20.5 (18.3-44.2) % [place] % (Auto) 11.3 H (2.6-8.5) % Eos % (Auto) 1.4 (0-4.4) % Baso % (Auto) 0.5 (0.2-1.2) % Lymph # (Auto) 1.88 (0.9-3.2) K/mm3 [place] # (Auto) 1.0 H (0.1-0.6) K/mm3 Eos # (Auto) 0.1 (0-0.3) K/mm3 Baso # (Auto) 0.1 (0.0-0.1) K/mm3 Abs Immat Gran (auto) 0.05 H (0.00-0.031) K/mm3 Absolute Neuts (auto) 6.0 (1.3-6.7) K/mm3 Absolute Nucleated RBC 0.000 (0.0-0.012) K/mm3 Nucleated RBC % 0.0 (0.0-0.2) % PT 14.6 (11.1-14.7) Seconds INR 1.1 APTT 29.7 (22.3-36.8) Seconds Sodium 138 (137-145) mmol/L Potassium 3.9 (3.4-5.0) mmol/L Chloride 103 (98-107) mmol/L Carbon Dioxide 27 (22-30) mmol/L Anion Gap 8 (4-12) mmol/L BUN 26 H D (9-20) mg/dL Creatinine 1.05 (0.7-1.3) mg/dL Estim Creat Clear Calc 76 ml/min Estimated GFR > 60 (59 - ) Glucose 94 (65-110) mg/dL Calcium 8.9 (8.4-10.2) mg/dL Total Bilirubin 1.4 H (0.2-1.3) mg/dL AST 27 (17-59) U/L ALT 18 (6-50) U/L Alkaline Phosphatase 82 (38-126) U/L Troponin I < 0.012 (0.000-0.034) ng/mL Total Protein 7.0 (6.3-8.2) g/dL Albumin 4.4 (3.5-5.1) g/dL Urine Color Yellow (Yellow) Urine Appearance Clear (Clear) Urine pH 6.0 (5.0-9.0) Ur Specific [place] 1.022 (1.001-1.035) Urine Protein Trace (Negative) mg/dL Urine Glucose (UA) Negative (Negative) mg/dL Urine Ketones Trace H (Negative) mg/dL Ur Blood (Man) Negative (Negative) Urine Nitrate Positive H (Negative) Urine Bilirubin Negative (Negative) Urine Urobilinogen 1.0 (<2.0) mg/dL Leukocyte Esterase Rfl 2+ H (Negative) LORNA/UL Urine RBC 0-2 (0-2) /hpf Urine WBC 51-100 H (0-3) /hpf Ur Squamous Epith Cells None seen (Few) /hpf Urine Bacteria 4+ H /hpf Urine Casts 0-2 Urine Opiates Screen Negative (Negative) Urine Methadone Screen Negative (Negative) Ur Barbiturates Screen Negative (Negative) Ur Phencyclidine Scrn Negative (Negative) Ur Amphetamine Screen Negative (Negative) U Benzodiazepines Scrn Negative (Negative) Urine Cocaine Screen Negative (Negative) U Cannabinoids Screen Negative (Negative) Critical Care Time Critical Care Time Critical Care Time: No Discharge Plan Discharge Clinical Impression: Urinary tract infection, Orthostatic hypotension, Unsteady gait Patient Disposition: Still a Patient Condition: Improved Quality Stroke Scale Stroke Scale 1: 1a Level of consciousness: alert-0 1b Level of consciousness questions: answers both correctly-0 1c Level of consciousness commands: obeys both correctly-0 2 Best gaze: normal-0 3 Visual: no visual loss-0 4 Facial palsy: normal-0 5a Motor: left arm: no drift-0 5b Motor: right arm: no drift-0 6a Motor: left leg: no drift-0 6b Motor: right leg: no drift-0 7 Limb ataxia: absent-0 8 Sensory: normal-0 9 Best language: no aphasia-0 10 Dysarthria: normal-0 11 Extinction and inattention: no abnormality-0 Level:: 0
--- NOTE | 2025-01-05 15:21 | ECG_ITS ---
Test Date: 2025-01-05 16:29:32 Measurements Intervals [place] Rate: 74 P: 42 NH: 152 QRS: -24 QRSD: 118 T: 45 QT: 398 QTc: 443 Interpretive Statements SINUS RHYTHM WITH OCCASIONAL SUPRAVENTRICULAR PREMATURE COMPLEXES BORDERLINE LEFT AXIS DEVIATION [QRS AXIS < -20] No previous ECG available for comparison Electronically Signed On 01-05-2025 17:20:19 CDT by Matheus Srinivasan M.D.
--- OUTSIDE RECORDS SUMMARY | 2025-01-05 15:39 | XMS_ITS | Clinical Summary ---
Author Organization [facility] Address [address] [place] [address] Phone Care Team Providers Care Product Coordinator Name Role Phone Unavailable Primary Care Provider [...] daily at bedtime. 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 Gender Identity Not on file Sexual Orientation Not on file Occupation Industry Job Start Date Job End Date Not on file Not on file Not on file Not on file Last Filed Vital Signs Vital Sign Reading Time Taken Comments Blood Pressure 140/74 10/11/2019 3:21 PM UTILITIES SERVICE INVESTIGATOR Pulse 68 10/11/2019 3:21 PM UTILITIES SERVICE INVESTIGATOR Temperature 36.1 C (96.9 F) 10/11/2019 3:21 PM UTILITIES SERVICE INVESTIGATOR Respiratory Rate 14 10/11/2019 3:21 PM UTILITIES SERVICE INVESTIGATOR Oxygen Saturation 95% 10/11/2019 3:21 PM UTILITIES SERVICE INVESTIGATOR Inhaled Oxygen Concentration - - Weight 130.6 kg (288 lb) 10/11/2019 9:19 AM UTILITIES SERVICE INVESTIGATOR Height 172.7 cm (5' 8) 10/11/2019 9:19 AM UTILITIES SERVICE INVESTIGATOR Body Mass Index 43.79 10/11/2019 9:19 AM UTILITIES SERVICE INVESTIGATOR Plan of Treatment Health Maintenance Due Date [...] series) 02/04/2027 Medical Devices Implanted Type Area Pcb Designer Device Identifier Shelf Expiration Date Model / Serial / Lot Patient Controller Intellis Ptm Implanted:Qty: 1 on 10/11/2019 by Laamr Morales MD at [facility] Integral N/A: Back [employer] NEUROLOGIC PAIN MGMT [id number] / / [id number] Patient Charge Intellis Rtm Implanted:Qty: 1 on 10/11/2019 by Lamar Morales MD at [facility] Integral N/A: Back [employer] NEUROLOGIC PAIN MGMT [id number] / / [id number] Lead Surescan Vectris Mri [id number] - [id number] Implanted:Qty: 1 on 10/11/2019 by Lamar Morales MD at [facility] Lead N/A: Back [employer]- NEUROLOGIC TECH 04/24/2023 [id number] / / [id number] Lead Surescan Vectris Mri [id number] - [id number] Implanted:Qty: 1 on 10/11/2019 by Lamar Morales MD at [facility] Lead N/A: Back [employer]- NEUROLOGIC TECH 04/24/2023 [id number] / / [id number] [place] Titan Kt Accessory 3550-39 Implanted:Qty: 1 on 09/08/2011 by Cristofer Evans DO at [facility] Other Left: Spine Lumbar [employer]- NEUROLOGIC TECH 07/14/2015 3550-39 / / [id number] Pelvic Pins Patient Bicycle Courier Implanted:Qty: 1 on 09/09/2011 by Cristofer Evans DO at [facility] [id number] / / [id number] Medtronic Neurostimulator Implanted:Qty: 1 on 10/11/2019 by Lamar Morales MD at [facility] N/A: Back [employer] INC 07/28/2020 [id number] / [id number] / Description:All Medtronic co mponents are processed on requisition [id number]. Explanted Type Area Pcb Designer Device Identifier Shelf Expiration Date Model / Serial / Lot Kit Lead Compact [id number] 3778-60 Implanted:Qty: 1 on 09/08/2011 by Cristofer Evans DO at [facility] Explanted:Qty: 1 on 10/11/2019 at [facility] Lead Left: Spine Lumbar [employer]- NEUROLOGIC TECH 05/29/2015 3778-60 / / [id number] 5 Kit Lead Compact [id number] 3778-60 Implanted:Qty: 1 on 09/08/2011 by Cristofer Evans DO at [facility] Explanted:Qty: 1 on 10/11/2019 at [facility] Lead Left: Spine Lumbar [employer]- NEUROLOGIC TECH 05/29/2015 3778-60 / / [id number] Neurostimulator Rechargeble [id number] - [id number] Implanted:Qty: 1 on 09/08/2011 by Cristofer Evans DO at [facility] Explanted:Qty: 1 on 10/11/2019 at [facility] Left: Spine Lumbar [employer] [facility] 06/28/2012 [id number] / [id number] / Advance Directives For more information, please contact: [phone] * Full Code (Latest Code Status on [...]
[2025-01-05 16:21] LABS: Basophils Absolute Auto 0.1 K/mm3 (0.0-0.1); Basophils Percent Auto 0.5 % (0.2-1.2); Eosinophils Absolute Auto 0.1 K/mm3 (0-0.3); Eosinophils Percent Auto 1.4 % (0-4.4); Hematocrit 40.1 % (42.0-52.0); Hemoglobin 12.7 g/dL (14.0-18.0); Immature Granulocyte Absolute 0.05 K/mm3 (0.00-0.031); Immature Granulocyte Percent A 0.5 % (0-0.5); Lymphocytes Absolute Auto 1.88 K/mm3 (0.9-3.2); Lymphocytes Percent Auto 20.5 % (18.3-44.2); Mean Corpuscular HGB Conc 31.7 g/dl (32-36); Mean Corpuscular Hemoglobin 27.6 pg (26-34); Mean Corpuscular Volume 87.2 fl (80-100); Monocytes Percent Auto 11.3 % (2.6-8.5); Neutrophils Percent Auto 65.8 % (45.5-73.1); Platelet Count Result 180 k/mm3 (150-375); Red Cell Distribution Width 14.6 % (11.5-14.5); White Blood Count 9.2 K/mm3 (4.5-10.0)
[2025-01-05] MEDS: SODIUM CHLORIDE 0.9% IV 1,000 ML 999 ML IV CONT (16:24)
[2025-01-05 16:25] LABS: Add Urine Microscopic? YES; Appearance Urine Clear (Clear); Bacteria Urine 4+ /hpf; Bilirubin Urine Negative (Negative); Blood Urine Negative (Negative); Color Urine Yellow (Yellow); Glucose Urine UA Negative (Negative); Ketones Urine Trace mg/dL (Negative); Leukocyte Esterase Ur 2+ LEU/UL (Negative); Nitrate Urine Positive (Negative); Non Pathogenic Casts 0-2; Protein Urine Trace mg/dL (Negative); RBC Urine 0-2 /hpf (0-2); Specific Grav Ur 1.022 (1.001-1.035); Squamous Epithelial Cell Urine None Seen /hpf (Few); WBC Urine 51-100 /hpf (0-3)
[2025-01-05 16:31] LABS: Alanine Aminotransferase 18 U/L (6-50); Albumin Level 4.4 g/dL (3.5-5.1); Alkaline Phosphatase 82 U/L (38-126); Anion Gap 8 mmol/L (4-12); Aspartate Amino Transferase 27 U/L (17-59); Bilirubin,Total 1.4 mg/dL (0.2-1.3); Blood Urea Nitrogen 26 mg/dL (9-20); Calcium 8.9 mg/dL (8.4-10.2); Carbon Dioxide 27 mmol/L (22-30); Chloride 103 mmol/L (98-107); Estimated CRCL calculation 76 ml/min; Estimated Glomerular Filt Rate > 60; Glucose 94 mg/dL (65-110); Potassium 3.9 mmol/L (3.4-5.0); Sodium 138 mmol/L (137-145)
[2025-01-05 16:34] LABS: INR 1.1; Prothrombin Time 14.6 Seconds (11.1-14.7)
[2025-01-05 16:35] LABS: Partial Thromboplastin Time 29.7 Seconds (22.3-36.8)
[2025-01-05 16:41] LABS: Amphetamine Screen Urine Negative (Negative); Barbiturate Screen Urine Negative (Negative); Benzodiazepines Screen Urine Negative (Negative); Cannabinoid Screen Urine Negative (Negative); Cocaine Screen Urine Negative (Negative); Methadone Screen Urine Negative (Negative); Opiate Screen Urine Negative (Negative); Phencyclidine Screen Urine Negative (Negative)
[2025-01-05 16:43] LABS: Troponin I < 0.012 ng/mL (0.000-0.034)
--- NOTE | 2025-01-05 19:39 | ADMGEN ---
This patient, Marcial Saldana, was admitted to [facility] Surg Room 326-01. Patient/family oriented to hospital policies and general routines including ID bracelet, bed and alarms, visiting hours, pain management, procedures, bathroom and other care routines, personal items, smoking policy, room service/diet, and visiting hours. Information on how to activate the Rapid Response Team has been discussed. Patient/Family are encouraged to report perceived risks to care and to ask questions if they do not understand what they are told or what they should do.
[2025-01-05] MEDS: SODIUM CHLORIDE 0.9% IV 1,000 ML 125 ML IV CONT (20:41)
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
[2025-01-05 21:50] LABS: Glucose Point of Care 100 mg/dl (65-105)
[2025-01-05] MEDS: ATORVASTATIN 40 MG TABLET PO (22:20)
[2025-01-05] MEDS: PREGABALIN (*CRX) 75 MG CAPSULE 225 MG PO (22:20)
[2025-01-06] VITALS (9 sets, daily range): BP systolic 131–156; BP diastolic 61–81; PULSE 75–89; RESP 20; TEMP 36.2–36.6; O2SAT 94–97
[2025-01-06] MEDS: SODIUM CHLORIDE 0.9% IV 1,000 ML 125 ML IV CONT ×3 (04:54→22:37)
[2025-01-06 05:40] LABS: Hematocrit 38.5 % (42.0-52.0); Hemoglobin 12.5 g/dL (14.0-18.0); Mean Corpuscular HGB Conc 32.5 g/dl (32-36); Mean Corpuscular Hemoglobin 27.9 pg (26-34); Mean Corpuscular Volume 85.9 fl (80-100); Mean Platelet Volume 12.2 fl (7.4-10.4); Platelet Count Result 145 k/mm3 (150-375); Red Blood Count 4.48 M/mm3 (4.6-6.20); Red Cell Distribution Width 14.3 % (11.5-14.5); White Blood Count 6.8 K/mm3 (4.5-10.0)
[2025-01-06 05:49] LABS: Alanine Aminotransferase 16 U/L (6-50); Albumin Level 3.9 g/dL (3.5-5.1); Alkaline Phosphatase 88 U/L (38-126); Anion Gap 9 mmol/L (4-12); Aspartate Amino Transferase 21 U/L (17-59); Bilirubin,Total 1.3 mg/dL (0.2-1.3); Blood Urea Nitrogen 17 mg/dL (9-20); Calcium 8.7 mg/dL (8.4-10.2); Carbon Dioxide 24 mmol/L (22-30); Chloride 109 mmol/L (98-107); Cholesterol 109 mg/dL (0-200); Estimated CRCL calculation 96 ml/min; Estimated Glomerular Filt Rate > 60; Glucose 98 mg/dL (65-110); HDL Direct 39 mg/dL; Magnesium 1.6 mg/dL (1.6-2.3); Potassium 3.8 mmol/L (3.4-5.0); Sodium 142 mmol/L (137-145); Triglycerides 73 mg/dL (<150)
[2025-01-06 06:00] LABS: LDL Cholesterol Direct 41 mg/dL
[2025-01-06 06:31] LABS: Thyroid Stimulating Hormone Reflex 0.428 uIU/mL (0.465-4.68)
[2025-01-06 07:32] LABS: Free T4 Free Thyroxine Reflex 1.21 ng/dL (0.78-2.19)
[2025-01-06 07:37] LABS: Glucose Point of Care 97 mg/dl (65-105)
[2025-01-06] MEDS: UMECLIDINIUM BROMIDE 62.5 MCG ELLIPTA 1 PUFF INHALATION (07:51)
[2025-01-06] MEDS: FLUTICASONE/SALMETEROL 115-21 MCG INHALER 1 PUFF 2 PUFF INHALATION ×2 (07:51→20:20)
[2025-01-06 08:23] LABS: Total Triiodothyronine (T3) 0.96 NG/ML (0.82-1.58)
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
[2025-01-06] MEDS: PANTOPRAZOLE 40 MG TABLET PO ×2 (10:15→17:57)
[2025-01-06] MEDS: buPROPion HCL XL (24 HR) 150 MG TABCR 300 MG PO (10:15)
[2025-01-06] MEDS: CHOLECALCIFEROL 1,000 UNITS TABLET 2000 UNITS PO (10:15)
[2025-01-06] MEDS: FERROUS SULFATE 325 MG TABLET DR PO (10:15)
[2025-01-06] MEDS: ASPIRIN 81 MG ENTERIC TABLET PO (10:16)
[2025-01-06] MEDS: PREGABALIN (*CRX) 75 MG CAPSULE 225 MG PO ×2 (10:16→17:57)
[2025-01-06] MEDS: ARIPiprazole 2.5 MG TABLET PO (10:17)
[2025-01-06] MEDS: EMPAGLIFLOZIN 12.5 MG TABLET PO (10:22)
[2025-01-06 11:35] LABS: Glucose Point of Care 103 mg/dl (65-105)
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
[2025-01-06 16:58] LABS: Glucose Point of Care 102 mg/dl (65-105)
[2025-01-06 20:10] LABS: Glucose Point of Care 113 mg/dl (65-105)
[2025-01-06] MEDS: ATORVASTATIN 40 MG TABLET PO (21:05)
[2025-01-06 21:07] LABS: Vitamin D 25 Hydroxy 52.6 ng/mL
[2025-01-06 21:53] LABS: Folic Acid 5.5 ng/mL (2.76->20)
[2025-01-07] VITALS (12 sets, daily range): BP systolic 129–164; BP diastolic 58–88; PULSE 72–93; RESP 16–24; TEMP 36.2–37.1; O2SAT 93–96
[2025-01-07] MEDS: SODIUM CHLORIDE 0.9% IV 1,000 ML 125 ML IV CONT (06:39)
[2025-01-07 07:37] LABS: Glucose Point of Care 92 mg/dl (65-105)
[2025-01-07] MEDS: UMECLIDINIUM BROMIDE 62.5 MCG ELLIPTA 1 PUFF INHALATION (07:43)
[2025-01-07] MEDS: FLUTICASONE/SALMETEROL 115-21 MCG INHALER 1 PUFF 2 PUFF INHALATION ×2 (07:43→21:26)
[2025-01-07] MEDS: CHOLECALCIFEROL 1,000 UNITS TABLET 2000 UNITS PO (08:16)
[2025-01-07] MEDS: PANTOPRAZOLE 40 MG TABLET PO ×2 (08:17→16:29)
[2025-01-07] MEDS: FERROUS SULFATE 325 MG TABLET DR PO (08:17)
[2025-01-07] MEDS: buPROPion HCL XL (24 HR) 150 MG TABCR 300 MG PO (08:17)
[2025-01-07] MEDS: EMPAGLIFLOZIN 12.5 MG TABLET PO (08:17)
[2025-01-07] MEDS: PREGABALIN (*CRX) 75 MG CAPSULE 225 MG PO ×2 (08:17→16:28)
[2025-01-07] MEDS: ASPIRIN 81 MG ENTERIC TABLET PO (08:17)
[2025-01-07] MEDS: ARIPiprazole 2.5 MG TABLET PO (08:18)
--- NOTE | 2025-01-07 08:41 | PM.IMPN ---
Progress Note: A&P Assessment and Plan (1) Urinary tract infection: Code(s): N39.0 - Urinary tract infection, site not specified Status: Acute Assessment and Plan: Continue ceftriaxone Monitor vital Monitor culture (2) Orthostatic hypotension: Code(s): I95.1 - Orthostatic hypotension Status: Acute Assessment and Plan: Maintain adequate hydration MARIBEL hose Caution when transitioning from sitting or lying to standing Can use abdominal binder if still having symptoms with the above interventions Not evident during this hospitalization but has past medical history of orthostatic hypotension (3) Hypertension: Onset Date: Unknown Qualifiers: Hypertension type: essential hypertension Qualified Code(s): I10 - Essential (primary) hypertension Code(s): I10 - Essential (primary) hypertension Status: Chronic Assessment and Plan: Blood pressure on target (4) Chronic obstructive pulmonary disease: Code(s): J44.9 - Chronic obstructive pulmonary disease, unspecified Status: Acute Assessment and Plan: Continue Advair Continue Incruse Ellipta (5) Obstructive sleep apnea on CPAP: Code(s): G47.33 - Obstructive sleep apnea (adult) (pediatric) Status: Acute Assessment and Plan: Continue CPAP Subjective Date/time seen: 01/07/25 08:41 Interval history: Patient unsteady gait possibly due to multiple comorbid condition including diabetic polyneuropathy, orthostatic hypertension, multiple surgeries on the lumbar spine. Patient MRI of brain pending due to penile implant. Patient reports currently does not have spinal cord stimulator but has dental implant. Nursing team will verify with MRI department tomorrow and also [facility] regards [facility] and other surgical implants from his previous pelvic surgery. Although orthostatic was not evident during this hospitalization patient reports he has a past medical history of orthostatic hypotension for long time. Review of Systems Review of Systems: 12 systems were reviewed and are negative except for as per HPI. Exam Narrative: General: Well-developed, nontoxic-appearing male sitting up in bed in no distress. Weight: 116 kg. BMI: 36.7. HEENT: Normocephalic, atraumatic. PERRL, EOMI. Sclera anicteric. Oral mucosa moist. Neck: Supple. No carotid bruits. Respiratory: Lungs are clear to auscultation bilaterally. Cardiovascular: Regular rate and rhythm with S1-S2. Gastrointestinal: Abdomen is soft, nontender, and nondistended with positive bowel sounds. Skin: Warm and dry. No rash or lesions on limited exam. Extremities: No cyanosis, clubbing, or edema. Radial and pedal pulses intact. Neurological: Alert and oriented. Cranial nerves 2-12 are grossly intact. Speech is clear. No facial asymmetry. No pronator drift. Normal [id number]. Strength 5/5 in upper lower extremities. Gait not assessed. Psychiatric: Pleasant and cooperative with normal mood and affect. Judgment and insight intact. Objective Data Vital Signs Vital Signs: Vital Signs - 24 hr 01/06/25 09:42 01/06/25 09:42 01/06/25 14:00 Temperature 97.1 F L 97.1 F L 97.2 F L Pulse Rate 82 89 75 Respiratory Rate 20 20 20 Blood Pressure 143/70 H 135/73 136/81 Pulse Oximetry 97 95 95 Oxygen Delivery 01/06/25 20:21 01/06/25 20:40 01/06/25 20:43 Temperature 98 F 98 F Pulse Rate 81 82 Respiratory Rate 20 20 Blood Pressure 147/76 H 145/76 H Pulse Oximetry 95 94 95 Oxygen Delivery Room Air 01/06/25 20:45 01/06/25 21:05 01/07/25 05:48 Temperature 98 F 97.8 F Pulse Rate 87 74 Respiratory Rate 20 16 Blood Pressure 156/70 H 129/71 Pulse Oximetry 94 93 Oxygen Delivery Room Air 01/07/25 07:46 Temperature Pulse Rate Respiratory Rate Blood Pressure Pulse Oximetry 93 Oxygen Delivery Room Air Intake/Output Intake/Output: Intake & Output 01/04/25 01/05/25 01/06/25 01/07/25 23:59 23:59 23:59 23:59 Intake Total 1050 4990 1650 Output Total 3600 2150 Balance 1050 1390 -500 Meds/Results Medications: Active Medications Generic Name Dose Route Start Last Admin Trade Name Freq PRN Reason Stop Dose Admin Acetaminophen 650 mg 01/05/25 17:30 Acetaminophen 325 Mg Tablet PO Q4H PRN Mild Pain (1-3) or Fever Hydrocodone Bitart/Acetaminophen 1 tab 01/05/25 23:48 Hydrocodone/Acetaminophen (*Crx) 5-325 Mg Tablet PO BID PRN pain 4-10 Aripiprazole 2.5 mg 01/06/25 09:00 01/07/25 08:18 Aripiprazole 2.5 Mg Tablet PO 2.5 mg DAILY TOM Administration Aspirin 81 mg 01/06/25 09:00 01/07/25 08:17 Aspirin 81 Mg Enteric Tablet PO 81 mg DAILY TOM Administration Atorvastatin Calcium 40 mg 01/05/25 21:20 01/06/25 21:05 Atorvastatin 40 Mg Tablet PO 40 mg HS TOM Administration Bupropion HCl 300 mg 01/06/25 09:00 01/07/25 08:17 Bupropion Hcl Xl (24 Hr) 150 Mg Tabcr PO 300 mg QAM TOM Administration Dextrose 12.5 gm 01/05/25 21:08 Dextrose 50% 25 Gm/50 Ml Syringe IV PUSH PRN PRN Hypoglycemia Protocol Empagliflozin 12.5 mg 01/06/25 09:00 01/07/25 08:17 Empagliflozin 12.5 Mg Tablet PO 12.5 mg DAILY TOM Administration Ferrous Sulfate 325 mg 01/06/25 09:00 01/07/25 08:17 Ferrous Sulfate [address] PO 325 mg DAILY TOM Administration Glucagon 1 mg 01/05/25 21:08 Glucagon For Inj 1 Mg Vial IM PRN PRN Hypoglycemia Protocol Glucose 15 gm 01/05/25 21:08 Glucose Oral Gel 15 Gm Of Glucse In 37.5 Gm Tube PO PRN PRN Hypoglycemia Protocol Sodium Chloride 1,000 mls @ 125 mls/hr 01/05/25 17:30 01/07/25 06:39 Normal Saline Iv IV CONT 125 mls/hr .Q8H TOM Administration Ceftriaxone Sodium 1 gm in 50 mls @ 100 mls/hr 01/05/25 18:00 01/06/25 17:58 Rocephin 1 Gm/Ns 50 Ml IVPB 100 mls/hr Q24H TOM Administration Dextrose 1,000 mls @ 100 mls/hr 01/05/25 21:08 Dextrose 5% 1,000 Ml IVPB PRN PRN Hypoglycemia Protocol Insulin Aspart 2 - 5 units 01/06/25 08:00 01/07/25 08:18 Insulin Aspart (*Bkc) 100 Units/Ml SUB-Q Not Given TIDWM TOM Protocol Insulin Aspart 1 - 2 units 01/06/25 21:00 01/06/25 21:06 Insulin Aspart (*Bkc) 100 Units/Ml SUB-Q Not Given HS TOM Protocol Meloxicam 15 mg 01/05/25 23:54 Meloxicam 7.5 Mg Tablet PO DAILY PRN arthritis Pantoprazole Sodium 40 mg 01/06/25 09:00 01/07/25 08:17 Pantoprazole 40 Mg Tablet PO 40 mg BID TOM Administration Pregabalin 225 mg 01/05/25 21:20 01/07/25 08:17 Pregabalin (*Crx) 75 Mg Capsule PO 225 mg BID TOM Administration Fluticasone/Salmeterol 2 puff 01/06/25 08:00 01/07/25 07:43 Fluticasone/Salmeterol 115-21 Mcg Inhaler 1 Puff INHALATION 2 puff Q12HRT TOM Administration Umeclidinium [place] 1 puff 01/06/25 09:00 01/07/25 07:43 Umeclidinium [place] 62.5 Mcg Ellipta INHALATION 1 puff DAILY TOM Administration Vitamin D 2,000 units 01/06/25 09:00 01/07/25 08:16 Cholecalciferol 1,000 Units Tablet PO 2,000 units DAILY TOM Administration Radiology Results: ITS Impressions Head CT 01/05/25 13:59 IMPRESSION: 1. 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 No acute intracranial process. 2. Age-related changes including mild diffuse on loss and mild scattered white matter hypoattenuation consistent with chronic small vessel ischemic disease. Chest X-Ray 01/05/25 16:19 IMPRESSION: No acute cardiopulmonary pathology. Labs Labs: Laboratory Results - last 24 hr 01/06/25 01/06/25 01/06/25 05:25 11:28 16:55 POC Capillary Glucose 103 102 Vitamin B12 434.0 Vitamin D 25-Hydroxy 52.6 Folate 5.5 01/06/25 01/07/25 20:01 07:33 POC Capillary Glucose 113 H 92 Vitamin B12 Vitamin D 25-Hydroxy Folate Quality VTE Prophylaxis VTE prophylaxis: mechanical ordered Hospitalist MIPS Advance Care Plan I have confirmed that the patient's Advanced Care Plan is present, code status is documented, or surrogate decision maker is listed in patient medical record.: Yes Medication Reconciliation I have utilized all available resources to obtain, update and review the patients current medications (includes all prescriptions, OTC, herbals, cannabis, and nutritional supplements).: Yes
[2025-01-07 09:19] LABS: Hematocrit 40.1 % (42.0-52.0); Hemoglobin 12.8 g/dL (14.0-18.0); Mean Corpuscular HGB Conc 31.9 g/dl (32-36); Mean Corpuscular Hemoglobin 27.5 pg (26-34); Mean Corpuscular Volume 86.2 fl (80-100); Mean Platelet Volume 12.5 fl (7.4-10.4); Platelet Count Result 193 k/mm3 (150-375); Red Blood Count 4.65 M/mm3 (4.6-6.20); Red Cell Distribution Width 14.3 % (11.5-14.5); White Blood Count 6.2 K/mm3 (4.5-10.0)
[2025-01-07 09:32] LABS: Alanine Aminotransferase 17 U/L (6-50); Albumin Level 3.9 g/dL (3.5-5.1); Alkaline Phosphatase 90 U/L (38-126); Anion Gap 11 mmol/L (4-12); Aspartate Amino Transferase 24 U/L (17-59); Blood Urea Nitrogen 14 mg/dL (9-20); Calcium 8.7 mg/dL (8.4-10.2); Carbon Dioxide 22 mmol/L (22-30); Chloride 107 mmol/L (98-107); Estimated CRCL calculation 95 ml/min; Estimated Glomerular Filt Rate > 60; Glucose 91 mg/dL (65-110); Potassium 3.5 mmol/L (3.4-5.0); Sodium 140 mmol/L (137-145)
[2025-01-07 11:54] LABS: Glucose Point of Care 94 mg/dl (65-105)
[2025-01-07 16:31] LABS: Glucose Point of Care 124 mg/dl (65-105)
[2025-01-07] MEDS: ATORVASTATIN 40 MG TABLET PO (20:36)
[2025-01-07 20:45] LABS: Glucose Point of Care 112 mg/dl (65-105)
[2025-01-08] VITALS (9 sets, daily range): BP systolic 118–139; BP diastolic 62–80; PULSE 76–88; RESP 16–20; TEMP 36.1–37.2; O2SAT 92–98
[2025-01-08 06:16] LABS: Hematocrit 41.9 % (42.0-52.0); Hemoglobin 13.3 g/dL (14.0-18.0); Mean Corpuscular HGB Conc 31.7 g/dl (32-36); Mean Corpuscular Hemoglobin 27.3 pg (26-34); Mean Corpuscular Volume 85.9 fl (80-100); Mean Platelet Volume 12.1 fl (7.4-10.4); Platelet Count Result 204 k/mm3 (150-375); Red Blood Count 4.88 M/mm3 (4.6-6.20); Red Cell Distribution Width 13.9 % (11.5-14.5); White Blood Count 7.2 K/mm3 (4.5-10.0)
[2025-01-08 06:43] LABS: Alanine Aminotransferase 17 U/L (6-50); Albumin Level 4.3 g/dL (3.5-5.1); Alkaline Phosphatase 93 U/L (38-126); Anion Gap 7 mmol/L (4-12); Aspartate Amino Transferase 23 U/L (17-59); Bilirubin,Total 1.2 mg/dL (0.2-1.3); Blood Urea Nitrogen 13 mg/dL (9-20); Calcium 9.1 mg/dL (8.4-10.2); Carbon Dioxide 29 mmol/L (22-30); Chloride 104 mmol/L (98-107); Estimated CRCL calculation 84 ml/min; Estimated Glomerular Filt Rate > 60; Glucose 106 mg/dL (65-110); Potassium 3.8 mmol/L (3.4-5.0); Sodium 140 mmol/L (137-145)
[2025-01-08] MEDS: FLUTICASONE/SALMETEROL 115-21 MCG INHALER 1 PUFF 2 PUFF INHALATION ×2 (07:28→20:23)
[2025-01-08] MEDS: UMECLIDINIUM BROMIDE 62.5 MCG ELLIPTA 1 PUFF INHALATION (07:28)
[2025-01-08 08:19] LABS: Glucose Point of Care 94 mg/dl (65-105)
[2025-01-08] MEDS: ARIPiprazole 2.5 MG TABLET PO (08:56)
[2025-01-08] MEDS: PREGABALIN (*CRX) 75 MG CAPSULE 225 MG PO ×2 (08:56→16:27)
[2025-01-08] MEDS: CHOLECALCIFEROL 1,000 UNITS TABLET 2000 UNITS PO (08:56)
[2025-01-08] MEDS: buPROPion HCL XL (24 HR) 150 MG TABCR 300 MG PO (08:56)
[2025-01-08] MEDS: FERROUS SULFATE 325 MG TABLET DR PO (08:56)
[2025-01-08] MEDS: EMPAGLIFLOZIN 12.5 MG TABLET PO (08:56)
[2025-01-08] MEDS: ASPIRIN 81 MG ENTERIC TABLET PO (08:56)
[2025-01-08] MEDS: PANTOPRAZOLE 40 MG TABLET PO ×2 (08:56→16:27)
[2025-01-08 11:55] LABS: Glucose Point of Care 86 mg/dl (65-105)
--- NOTE | 2025-01-08 16:47 | PM.IMPN ---
Progress Note: A&P Assessment and Plan (1) Urinary tract infection: Code(s): N39.0 - Urinary tract infection, site not specified Status: Acute Assessment and Plan: Continue ceftriaxone urine culture E coli urine culture reviewed sensitive to Rocephin (2) Orthostatic hypotension: Code(s): I95.1 - Orthostatic hypotension Status: Acute Assessment and Plan: resolved Orthostatic hypotension normal today (3) Hypertension: Onset Date: Unknown Qualifiers: Hypertension type: essential hypertension Qualified Code(s): I10 - Essential (primary) hypertension Code(s): I10 - Essential (primary) hypertension Status: Chronic Assessment and Plan: Blood pressure on target (4) Chronic obstructive pulmonary disease: Code(s): J44.9 - Chronic obstructive pulmonary disease, unspecified Status: Acute Assessment and Plan: Continue Advair Continue Incruse Ellipta (5) Obstructive sleep apnea on CPAP: Code(s): G47.33 - Obstructive sleep apnea (adult) (pediatric) Status: Acute Assessment and Plan: Continue CPAP Plan DVT prophylaxis on Sq Lovenox Subjective Date/time seen: 01/08/25 16:47 Interval history: Comfortable at bedside Awaiting at MRI brain which is being delayed pending retrieving penile implant information Review of Systems Review of Systems: 12 systems were reviewed and are negative except for as per HPI. Exam Narrative: General: Well-developed, nontoxic-appearing male sitting up in bed in no distress. Weight: 116 kg. BMI: 36.7. HEENT: Normocephalic, atraumatic. PERRL, EOMI. Sclera anicteric. Oral mucosa moist. Neck: Supple. No carotid bruits. Respiratory: Lungs are clear to auscultation bilaterally. Cardiovascular: Regular rate and rhythm with S1-S2. Gastrointestinal: Abdomen is soft, nontender, and nondistended with positive bowel sounds. Skin: Warm and dry. No rash or lesions on limited exam. Extremities: No cyanosis, clubbing, or edema. Radial and pedal pulses intact. Neurological: Alert and oriented. Cranial nerves 2-12 are grossly intact. Speech is clear. No facial asymmetry. No pronator drift. Normal [id number]. Strength 5/5 in upper lower extremities. Gait not assessed. Psychiatric: Pleasant and cooperative with normal mood and affect. Judgment and insight intact. Objective Data Vital Signs Vital Signs: Vital Signs - 24 hr 01/07/25 19:44 01/07/25 19:44 01/07/25 19:44 Temperature 98.8 F 98.8 F 98.7 F Pulse Rate 76 76 93 Respiratory Rate 20 20 20 Blood Pressure 156/66 H 157/84 H 145/88 H Pulse Oximetry 96 96 96 Oxygen Delivery 01/07/25 19:46 01/07/25 19:49 01/07/25 20:36 Temperature 98.7 F 98.7 F Pulse Rate 93 88 Respiratory Rate 20 20 Blood Pressure 145/88 H 164/76 H Pulse Oximetry 96 96 Oxygen Delivery Room Air 01/07/25 21:30 01/08/25 00:20 01/08/25 06:00 Temperature 98.9 F 98.3 F Pulse Rate 72 86 80 Respiratory Rate 16 16 Blood Pressure 125/77 118/77 Pulse Oximetry 93 98 92 Oxygen Delivery Room Air 01/08/25 07:32 01/08/25 07:34 01/08/25 08:00 Temperature 97.9 F Pulse Rate 76 88 Respiratory Rate 16 18 Blood Pressure 135/80 Pulse Oximetry 96 96 Oxygen Delivery Room Air 01/08/25 08:00 01/08/25 09:00 01/08/25 09:00 Temperature Pulse Rate Respiratory Rate Blood Pressure 138/63 139/62 Pulse Oximetry Oxygen Delivery Room Air 01/08/25 09:00 Temperature Pulse Rate Respiratory Rate Blood Pressure 133/64 Pulse Oximetry Oxygen Delivery Intake/Output Intake/Output: Intake & Output 01/05/25 01/06/25 01/07/25 01/08/25 23:59 23:59 23:59 23:59 Intake Total 1050 5040 2610 550 Output Total 3600 2550 1150 Balance 1050 1440 60 -600 Meds/Results Medications: Active Medications Generic Name Dose Route Start Last Admin Trade Name Freq PRN Reason Stop Dose Admin Acetaminophen 650 mg 01/05/25 17:30 Acetaminophen 325 Mg Tablet PO Q4H PRN Mild Pain (1-3) or Fever Hydrocodone Bitart/Acetaminophen 1 tab 01/05/25 23:48 Hydrocodone/Acetaminophen (*Crx) 5-325 Mg Tablet PO BID PRN pain 4-10 Aripiprazole 2.5 mg 01/06/25 09:00 01/08/25 08:56 Aripiprazole 2.5 Mg Tablet PO 2.5 mg DAILY TOM Administration Aspirin 81 mg 01/06/25 09:00 01/08/25 08:56 Aspirin 81 Mg Enteric Tablet PO 81 mg DAILY TOM Administration Atorvastatin Calcium 40 mg 01/05/25 21:20 01/07/25 20:36 Atorvastatin 40 Mg Tablet PO 40 mg HS TOM Administration Bupropion HCl 300 mg 01/06/25 09:00 01/08/25 08:56 Bupropion Hcl Xl (24 Hr) 150 Mg Tabcr PO 300 mg QAM TOM Administration Cephalexin HCl 500 mg 01/08/25 19:00 Cephalexin 500 Mg Capsule PO 01/12/25 09:01 Q12HR TOM Dextrose 12.5 gm 01/05/25 21:08 Dextrose 50% 25 Gm/50 Ml Syringe IV PUSH PRN PRN Hypoglycemia Protocol Empagliflozin 12.5 mg 01/06/25 09:00 01/08/25 08:56 Empagliflozin 12.5 Mg Tablet PO 12.5 mg DAILY TOM Administration Ferrous Sulfate 325 mg 01/06/25 09:00 01/08/25 08:56 Ferrous Sulfate [address] PO 325 mg DAILY TOM Administration Glucagon 1 mg 01/05/25 21:08 Glucagon For Inj 1 Mg Vial IM PRN PRN Hypoglycemia Protocol Glucose 15 gm 01/05/25 21:08 Glucose Oral Gel 15 Gm Of Glucse In 37.5 Gm Tube PO PRN PRN Hypoglycemia Protocol Dextrose 1,000 mls @ 100 mls/hr 01/05/25 21:08 Dextrose 5% 1,000 Ml IVPB PRN PRN Hypoglycemia Protocol Insulin Aspart 2 - 5 units 01/06/25 08:00 01/08/25 12:06 Insulin Aspart (*Bkc) 100 Units/Ml SUB-Q Not Given TIDWM [facility] Protocol Insulin Aspart 1 - 2 units 01/06/25 21:00 01/07/25 20:39 Insulin Aspart (*Bkc) 100 Units/Ml SUB-Q Not Given HS [facility] Protocol Meloxicam 15 mg 01/05/25 23:54 Meloxicam 7.5 Mg Tablet PO DAILY PRN arthritis Pantoprazole Sodium 40 mg 01/06/25 09:00 01/08/25 16:27 Pantoprazole 40 Mg Tablet PO 40 mg BID TOM Administration Pregabalin 225 mg 01/05/25 21:20 01/08/25 16:27 Pregabalin (*Crx) 75 Mg Capsule PO 225 mg BID TOM Administration Fluticasone/Salmeterol 2 puff 01/06/25 08:00 01/08/25 07:28 Fluticasone/Salmeterol 115-21 Mcg Inhaler 1 Puff INHALATION 2 puff Q12HRT TOM Administration Umeclidinium [place] 1 puff 01/06/25 09:00 01/08/25 07:28 Umeclidinium [place] 62.5 Mcg Ellipta INHALATION 1 puff DAILY TOM Administration Vitamin D 2,000 units 01/06/25 09:00 01/08/25 08:56 Cholecalciferol 1,000 Units Tablet PO 2,000 units DAILY TOM Administration Radiology Results: ITS Impressions Head CT 01/05/25 13:59 IMPRESSION: 1. 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 No acute intracranial process. 2. Age-related changes including mild diffuse on loss and mild scattered white matter hypoattenuation consistent with chronic small vessel ischemic disease. Chest X-Ray 01/05/25 16:19 IMPRESSION: No acute cardiopulmonary pathology. Labs Labs: Laboratory Results - last 24 hr 01/07/25 01/08/25 01/08/25 20:38 05:59 08:14 WBC 7.2 RBC 4.88 Hgb 13.3 L Hct 41.9 L MCV 85.9 MCH 27.3 MCHC 31.7 L RDW 13.9 Plt Count 204 MPV 12.1 H Sodium 140 Potassium 3.8 Chloride 104 Carbon Dioxide 29 Anion Gap 7 BUN 13 Creatinine 0.87 Estim Creat Clear Calc 84 Estimated GFR > 60 Glucose 106 POC Capillary Glucose 112 H 94 Calcium 9.1 Total Bilirubin 1.2 AST 23 ALT 17 Alkaline Phosphatase 93 Total Protein 7.0 Albumin 4.3 01/08/25 11:51 WBC RBC Hgb Hct MCV MCH MCHC RDW Plt Count MPV Sodium Potassium Chloride Carbon Dioxide Anion Gap BUN Creatinine Estim Creat Clear Calc Estimated GFR Glucose POC Capillary Glucose 86 Calcium Total Bilirubin AST ALT Alkaline Phosphatase Total Protein Albumin Quality VTE Prophylaxis VTE prophylaxis: mechanical ordered
[2025-01-08 17:10] LABS: Glucose Point of Care 112 mg/dl (65-105)
[2025-01-08] MEDS: CEPHALEXIN 500 MG CAPSULE PO (18:08)
[2025-01-08 22:07] LABS: Glucose Point of Care 115 mg/dl (65-105)
[2025-01-08] MEDS: ATORVASTATIN 40 MG TABLET PO (22:14)
[2025-01-09 04:30] VITALS: BP 131/63; PULSE 78; RESP 18; TEMP 36.6; O2SAT 98
[2025-01-09 04:33] VITALS: BP 104/66; PULSE 85
[2025-01-09 04:36] VITALS: BP 108/61; PULSE 85
[2025-01-09] MEDS: ARIPiprazole 2.5 MG TABLET PO (08:26)
[2025-01-09] MEDS: PANTOPRAZOLE 40 MG TABLET PO (08:26)
[2025-01-09] MEDS: FERROUS SULFATE 325 MG TABLET DR PO (08:26)
[2025-01-09] MEDS: ASPIRIN 81 MG ENTERIC TABLET PO (08:26)
[2025-01-09] MEDS: PREGABALIN (*CRX) 75 MG CAPSULE 225 MG PO (08:26)
[2025-01-09] MEDS: CHOLECALCIFEROL 1,000 UNITS TABLET 2000 UNITS PO (08:26)
[2025-01-09] MEDS: CEPHALEXIN 500 MG CAPSULE PO (08:26)
[2025-01-09] MEDS: EMPAGLIFLOZIN 12.5 MG TABLET PO (08:26)
[2025-01-09] MEDS: buPROPion HCL XL (24 HR) 150 MG TABCR 300 MG PO (08:27)
[2025-01-09] MEDS: ENOXAPARIN 40 MG/0.4 ML SYRINGE SUB-Q (08:27)
[2025-01-09 08:36] LABS: Glucose Point of Care 112 mg/dl (65-105)
[2025-01-09 10:34] LABS: Homocysteine 7.6 umol/L (< or = 15.2)
[2025-01-09 11:27] LABS: Glucose Point of Care 132 mg/dl (65-105)
--- NOTE | 2025-01-09 13:28 | PM.IMPN ---
Progress Note: A&P Assessment and Plan (1) Urinary tract infection: Code(s): N39.0 - Urinary tract infection, site not specified Status: Acute Assessment and Plan: Continue ceftriaxone urine culture E coli urine culture reviewed sensitive to Rocephin (2) Orthostatic hypotension: Code(s): I95.1 - Orthostatic hypotension Status: Acute Assessment and Plan: resolved Orthostatic hypotension normal today (3) Hypertension: Onset Date: Unknown Qualifiers: Hypertension type: essential hypertension Qualified Code(s): I10 - Essential (primary) hypertension Code(s): I10 - Essential (primary) hypertension Status: Chronic Assessment and Plan: Blood pressure on target (4) Chronic obstructive pulmonary disease: Code(s): J44.9 - Chronic obstructive pulmonary disease, unspecified Status: Acute Assessment and Plan: Continue Advair Continue Incruse Ellipta (5) Obstructive sleep apnea on CPAP: Code(s): G47.33 - Obstructive sleep apnea (adult) (pediatric) Status: Acute Assessment and Plan: Continue CPAP Plan AMS, resolved Awiating MRI brain Awaiting information on penile implant for MRI brain exam DVT prophylaxis on Sq Lovenox Subjective Date/time seen: 01/09/25 13:28 Interval history: Comfortable at bedside Awaiting at MRI brain which is being delayed pending retrieving penile implant information Review of Systems Review of Systems: 12 systems were reviewed and are negative except for as per HPI. Exam Narrative: General: Well-developed, nontoxic-appearing male sitting up in bed in no distress. Weight: 116 kg. BMI: 36.7. HEENT: Normocephalic, atraumatic. PERRL, EOMI. Sclera anicteric. Oral mucosa moist. Neck: Supple. No carotid bruits. Respiratory: Lungs are clear to auscultation bilaterally. Cardiovascular: Regular rate and rhythm with S1-S2. Gastrointestinal: Abdomen is soft, nontender, and nondistended with positive bowel sounds. Skin: Warm and dry. No rash or lesions on limited exam. Extremities: No cyanosis, clubbing, or edema. Radial and pedal pulses intact. Neurological: Alert and oriented. Cranial nerves 2-12 are grossly intact. Speech is clear. No facial asymmetry. No pronator drift. Normal [id number]. Strength 5/5 in upper lower extremities. Gait not assessed. Psychiatric: Pleasant and cooperative with normal mood and affect. Judgment and insight intact. Objective Data Vital Signs Vital Signs: Vital Signs - 24 hr 01/08/25 14:00 01/08/25 16:00 01/08/25 21:06 Temperature 98.0 F 98.1 F 97 F L Pulse Rate 80 80 84 Respiratory Rate 20 20 16 Blood Pressure 125/72 120/64 139/71 Pulse Oximetry 97 98 96 Oxygen Delivery 01/08/25 22:14 01/09/25 04:30 01/09/25 04:30 Temperature 97.9 F Pulse Rate 78 78 Respiratory Rate 18 Blood Pressure 131/63 131/63 Pulse Oximetry 98 Oxygen Delivery Room Air 01/09/25 04:33 01/09/25 04:36 01/09/25 08:00 Temperature Pulse Rate 85 85 Respiratory Rate Blood Pressure 104/66 108/61 Pulse Oximetry Oxygen Delivery Room Air Intake/Output Intake/Output: Intake & Output 01/06/25 01/07/25 01/08/25 01/09/25 23:59 23:59 23:59 23:59 Intake Total 5040 2610 1650 1180 Output Total 3600 2550 1150 500 Balance 1440 60 500 680 Meds/Results Medications: Active Medications Generic Name Dose Route Start Last Admin Trade Name Freq PRN Reason Stop Dose Admin Acetaminophen 650 mg 01/05/25 17:30 Acetaminophen 325 Mg Tablet PO Q4H PRN Mild Pain (1-3) or Fever Hydrocodone Bitart/Acetaminophen 1 tab 01/05/25 23:48 Hydrocodone/Acetaminophen (*Crx) 5-325 Mg Tablet PO BID PRN pain 4-10 Aripiprazole 2.5 mg 01/06/25 09:00 01/09/25 08:26 Aripiprazole 2.5 Mg Tablet PO 2.5 mg DAILY TOM Administration Aspirin 81 mg 01/06/25 09:00 01/09/25 08:26 Aspirin 81 Mg Enteric Tablet PO 81 mg DAILY TOM Administration Atorvastatin Calcium 40 mg 01/05/25 21:20 01/08/25 22:14 Atorvastatin 40 Mg Tablet PO 40 mg HS TOM Administration Bupropion HCl 300 mg 01/06/25 09:00 01/09/25 08:27 Bupropion Hcl Xl (24 Hr) 150 Mg Tabcr PO 300 mg QAM TOM Administration Cephalexin HCl 500 mg 01/08/25 19:00 01/09/25 08:26 Cephalexin 500 Mg Capsule PO 01/12/25 09:01 500 mg Q12HR TOM Administration Dextrose 12.5 gm 01/05/25 21:08 Dextrose 50% 25 Gm/50 Ml Syringe IV PUSH PRN PRN Hypoglycemia Protocol Empagliflozin 12.5 mg 01/06/25 09:00 01/09/25 08:26 Empagliflozin 12.5 Mg Tablet PO 12.5 mg DAILY TOM Administration Enoxaparin Sodium 40 mg 01/09/25 09:00 01/09/25 08:27 Enoxaparin 40 Mg/0.4 Ml Syringe SUB-Q 40 mg DAILY TOM Administration Ferrous Sulfate 325 mg 01/06/25 09:00 01/09/25 08:26 Ferrous Sulfate [address] PO 325 mg DAILY TOM Administration Glucagon 1 mg 01/05/25 21:08 Glucagon For Inj 1 Mg Vial IM PRN PRN Hypoglycemia Protocol Glucose 15 gm 01/05/25 21:08 Glucose Oral Gel 15 Gm Of Glucse In 37.5 Gm Tube PO PRN PRN Hypoglycemia Protocol Dextrose 1,000 mls @ 100 mls/hr 01/05/25 21:08 Dextrose 5% 1,000 Ml IVPB PRN PRN Hypoglycemia Protocol Insulin Aspart 2 - 5 units 01/06/25 08:00 01/09/25 11:52 Insulin Aspart (*Bkc) 100 Units/Ml SUB-Q Not Given TIDWM [facility] Protocol Insulin Aspart 1 - 2 units 01/06/25 21:00 01/08/25 22:14 Insulin Aspart (*Bkc) 100 Units/Ml SUB-Q Not Given HS [facility] Protocol Meloxicam 15 mg 01/05/25 23:54 Meloxicam 7.5 Mg Tablet PO DAILY PRN arthritis Pantoprazole Sodium 40 mg 01/06/25 09:00 01/09/25 08:26 Pantoprazole 40 Mg Tablet PO 40 mg BID TOM Administration Pregabalin 225 mg 01/05/25 21:20 01/09/25 08:26 Pregabalin (*Crx) 75 Mg Capsule PO 225 mg BID TOM Administration Fluticasone/Salmeterol 2 puff 01/06/25 08:00 01/08/25 20:23 Fluticasone/Salmeterol 115-21 Mcg Inhaler 1 Puff INHALATION 2 puff Q12HRT TOM Administration Umeclidinium [place] 1 puff 01/06/25 09:00 01/08/25 07:28 Umeclidinium [place] 62.5 Mcg Ellipta INHALATION 1 puff DAILY [facility] Administration Vitamin D 50 mcg 01/10/25 09:00 Cholecalciferol (Vitamin D3) 25 Mcg (1,000 Units) Tablet PO DAILY [facility] Radiology Results: ITS Impressions Head CT 01/05/25 13:59 IMPRESSION: 1. 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 No acute intracranial process. 2. Age-related changes including mild diffuse on loss and mild scattered white matter hypoattenuation consistent with chronic small vessel ischemic disease. Chest X-Ray 01/05/25 16:19 IMPRESSION: No acute cardiopulmonary pathology. Labs Labs: Laboratory Results - last 24 hr 01/07/25 01/08/25 01/08/25 05:38 17:06 22:04 POC Capillary Glucose 112 H 115 H Homocysteine 7.6 01/09/25 01/09/25 08:23 11:14 POC Capillary Glucose 112 H 132 H Homocysteine Quality VTE Prophylaxis VTE prophylaxis: mechanical ordered
[2025-01-09 14:00] VITALS: BP 128/71; PULSE 85; RESP 18; TEMP 36.4; O2SAT 98
--- NOTE | 2025-01-09 14:07 | PM.DS ---
DS: Admitting Diagnosis Discharge Date 01/09/25 Admitting Diagnosis Feeling unsteady. DS: Discharge Diagnosis Discharge Diagnosis (1) UTI (urinary tract infection): Qualifiers: Urinary tract infection type: acute cystitis Hematuria presence: without hematuria Qualified Code(s): N30.00 - Acute cystitis without hematuria Code(s): N39.0 - Urinary tract infection, site not specified Status: Acute DS: Summary Hospital Course Hospital Course: This is a 74-year-old male with hypertension, hyperlipidemia, type 2 diabetes mellitus, gastroesophageal reflux disease, and chronic obstructive pulmonary disease presented to the emergency department via private vehicle with complaints of unsteadiness. The last couple of days he has been having frequent episodes of unsteadiness while walking. It tends to occur shortly after he goes from a seated to standing position and he reports that he will suddenly feel very lightheaded and dizzy with ?feeling like I am in a fog and I can not even talk.? He then says it feels as though he is bouncing from daniel to furniture in order to try to stabilize himself to prevent a fall. He has noticed some mild dysuria over a few days but is otherwise feeling okay. He has had similar symptoms over the years but they are very infrequent. In the ED: Temp 98.2?, blood pressure 108/54, pulse 87, respiratory rate 16, SpO2 99% on room air. Orthostatic vital signs were positive with a blood pressure from 125/63 to 102/56 when going from sitting to standing. Labs are significant for WBC count of 9.2, hemoglobin 12.7, platelet 180, BUN 26, creatinine 1.05, troponin less than 0.012. Urine was positive for trace ketones, nitrates, 2+ leukocyte esterase, 51 to 100 WBC, and 4+ bacteria. Urine drug screen was negative. Head CT showed small old lacunar infarcts and age related changes. Chest x-ray is normal. EKG showed sinus rhythm with occasional supraventricular premature complexes and borderline left axis deviation. Neurology was consulted and MRI was ordered, however neurology suspects that this is most likely related to patient's diabetic neuropathy. MRI brain was unable to be done as patient has penile implant for which waited for information for mri compatibility to no avail. Discussed with Dr watson from Neurology today and he was okay to dsicharge and continue follow up outpatient. he however noted that patient's symptoms are most likely related to diabetic neuropathy. Discharged on Macrobid x 3 days to complete treatmetn of E coli UTi. sensitivity reviewed F/u with PCP in 3-5 days F/u with neurology as instructed Time Spent with Patient Time attestation: Total time spent providing and/or coordinating discharge services: DS: Data Data Completed and Pending Labs on day of discharge: Labs from last 24 hours 01/09/25 01/09/25 01/08/25 11:14 08:23 22:04 POC Capillary Glucose 132 H 112 H 115 H Homocysteine 01/08/25 01/07/25 17:06 05:38 POC Capillary Glucose 112 H Homocysteine 7.6 Discharge Plan Discharge Attending physician on discharge: Xu Israel Consulting providers: Julio Watson Discharging Clinician: Xu Israel Anticipated Discharge Date/Time: 01/09/25 13:46 Patient Disposition: Home Activity: as tolerated Diet: as tolerated and regular Patient Instructions: Antibiotic Form Patient Language: Citizen Of [place] Stand Alone Forms: General Discharge Information Follow-up/Referrals: Julio Watson MD [Physician] - (F/u with neurology as instructed ) [facility] [Primary Care Provider] - (F/u with PCp in 3-5 days ) Discharge Medications: New nitrofurantoin monohyd/m-cryst [Macrobid] 100 mg capsule 100 mg PO Q12H 3 Days Qty: 6 0RF Rx Instructions: must administer with a meal/food Continued metformin 500 mg Tablet 500 mg PO BID aspirin [Adult Low Dose Aspirin] 81 mg Tablet,Delayed Release (Dr/Ec) 81 mg PO DAILY lisinopril 10 mg Tablet 10 mg PO DAILY aripiprazole 5 mg Tablet 2.5 mg PO DAILY pregabalin [Lyrica] 225 mg Capsule 225 mg PO BID cholecalciferol (vitamin D3) [Vitamin D3] 50 mcg (2,000 unit) Capsule 50 mcg PO DAILY atorvastatin 40 mg Tablet 40 mg PO HS bupropion HCl 300 mg Tablet Extended Release 24 Hr 300 mg PO QAM budesonide-formoterol [Symbicort] 160-4.5 mcg/actuation Hfa Aerosol Inhaler 2 puff INHALATION Q12H Spiriva Respimat 2.5 mcg/actuation Mist 2 puff INHALATION DAILY ferrous sulfate [Dipesh-Time] 325 mg (65 mg iron) tablet 325 mg PO DAILY tamsulosin [Flomax] 0.4 mg capsule 0.4 mg PO DAILY meloxicam 15 mg tablet 15 mg PO DAILY PRN (Reason: arthritis) Jardiance 25 mg tablet 25 mg PO DAILY Rx Instructions: 1/2 tab daily spironolactone 25 mg tablet 12.5 mg PO DAILY hydrocodone-acetaminophen 5-325 mg tablet 1 tablet PO BID PRN (Reason: pain) isosorbide mononitrate 30 mg tablet extended release 24 hr 30 mg PO DAILY omeprazole magnesium [Prilosec OTC] 20 mg tablet,delayed release (DR/EC) 20 mg PO BID Qty: 30 0RF Date of admission: 01/06/25 16:03 Primary Care Provider: [facility] Admitting Provider: Rolanda Jenkins Attending physician on admission: Rolanda Jenkins Condition: Improved
[2025-01-10 15:38] LABS: Methylmalonic Acid 143 nmol/L (69-390)
== END 2025-01-09 14:45 | disposition home or self-care (01) | DRG 690 ==
LOC: ANHED 17:40 → ANH3MEDSUR 18:17
PROVIDERS: General Practice; Physician Assistant; Psychiatry & Neurology Neurology; Admitting Provider Family Medicine; Emergency Provider Emergency Medicine; Visit Provider Internal Medicine
DX: N30.00 Acute cystitis without hematuria (principal); B96.20 Unspecified Escherichia coli [E. coli] as the cause of diseases classified elsewhere; G47.33 Obstructive sleep apnea (adult) (pediatric); E78.5 Hyperlipidemia, unspecified; E11.42 Type 2 diabetes mellitus with diabetic polyneuropathy; F11.10 Opioid abuse, uncomplicated; F43.10 Post-traumatic stress disorder, unspecified; G89.29 Other chronic pain; I95.1 Orthostatic hypotension; I10 Essential (primary) hypertension; J44.9 Chronic obstructive pulmonary disease, unspecified; K21.9 Gastro-esophageal reflux disease without esophagitis; Z79.84 Long term (current) use of oral hypoglycemic drugs; Z79.82 Long term (current) use of aspirin; Z90.49 Acquired absence of other specified parts of digestive tract; Z87.891 Personal history of nicotine dependence; Z86.73 Personal history of transient ischemic attack (TIA), and cerebral infarction without residual deficits; Z99.89 Dependence on other enabling machines and devices
CPT/HCPCS: 36415; 70450; 71045; 80053; 80061; 80307; 81001; 82306; 82607; 82746; 82948; 83090; 83735; 83921; 84439; 84443; 84480; 84484; 85025; 85027; 85610; 85730; 87086; 87186; 93005; 94640; 96360; 96361; 97165; 99285; A9270; G0378; J0696; J1650; J7030